=== PATIENT | female | born 1960 | race Caucasian/White ===

== ENCOUNTER 2018-05-11 10:11 | Day surgery (SDC) | payer OTHER ==
[2018-05-11 10:20] VITALS: BMI 38.2
--- NOTE | 2018-05-11 10:55 | PDOC ---
History of Present Illness - General Chief Complaint: Pain, Acute Stated Complaint: ABD PAIN, NAUSEA Time Seen by Provider: 05/11/18 10:31 History Source: Patient Exam Limitations: No Limitations - History of Present Illness Initial Comments: 05/11/18 11:03 57-year-old female presents to the emergency room for preop secondary to lap band removal. As per patient she had a lap band done in 2011 and since then has had abdominal pain, intermittent vomiting, epigastric spasms and unsuccessful weight loss. Patient will be admitted under Dr. davenport for removal today at 11 AM. Patient has no other complaints including difficulty breathing, chest pain, fever chills diarrhea, or weakness. Timing/Duration: getting worse, intermittent Severity: mild Associated Symptoms: reports: nausea/vomiting Past History - Travel Traveled outside of the country in the last 30 days: No - Past Medical History Allergies/Adverse Reactions: Allergies Allergy/AdvReac Type Severity Reaction Status Date / Time No Known Allergies Allergy Verified 05/11/18 10:20 Home Medications: Ambulatory Orders Dapagliflozin Propanediol [Farxiga] 10 mg PO DAILY 05/11/18 Dulaglutide [Trulicity] 0.75 mg SQ WEEKLY 05/11/18 Famotidine [Pepcid] 20 mg PO BID #60 tablet 05/11/18 Hydrochlorothiazide 25 mg PO DAILY 05/11/18 Insulin Aspart [Novolog] 40 unit SQ ASDIR 05/11/18 Insulin Degludec [Tresiba Flextouch U-100] 150 unit SQ DAILY 05/11/18 Losartan Potassium 100 mg PO DAILY 05/11/18 Metformin HCl [Glucophage] 1,000 mg PO BID 05/11/18 Omeprazole 40 mg PO DAILY 05/11/18 Oxycodone HCl/Acetaminophen [Percocet 5-325 mg Tablet] 1 - 2 tab PO Q6H #28 tab MDD 4 05/11/18 Rosuvastatin Calcium 20 mg PO HS 05/11/18 Anemia: No Asthma: No Cancer: No Cardiac Disorders: No CVA: No COPD: No CHF: No Dementia: No Diabetes: Yes (IDDM) GI Disorders: No Disorders: No HTN: Yes Hypercholesterolemia: Yes Liver Disease: No Seizures: No Thyroid Disease: No - Surgical History Abdominal Surgery: Yes (LAP BAND, HERNIA REPAIR) Appendectomy: No Cardiac Surgery: No Cholecystectomy: Yes Lung Surgery: No Neurologic Surgery: No Orthopedic Surgery: No - Suicide/Smoking/Psychosocial Hx Smoking Status: Yes Smoking History: Current every day smoker Have you smoked in the past 12 months: Yes Number of Cigarettes Smoked Daily: 20 Information on smoking cessation initiated: No Hx Alcohol Use: No Drug/Substance Use Hx: No Substance Use Type: None Hx Substance Use Treatment: No Patient Lives Alone: No Review of Systems - Review of Systems Able to Perform ROS?: No Constitutional: No: Symptoms Reported HEENTM: No: Symptoms Reported Respiratory: No: Symptoms reported Cardiac (ROS): No: Symptoms Reported ABD/GI: Yes: Nausea, Vomiting, Abdominal cramping : No: Symptoms Reported Musculoskeletal: No: Symptoms Reported Integumentary: No: Symptoms Reported Neurological: No: Symptoms reported *Physical Exam - Vital Signs Last Vital Signs Temp Pulse Resp BP Pulse Ox 98.2 F 105 H 16 140/70 97 05/11/18 10:15 05/11/18 10:15 05/11/18 10:15 05/11/18 10:15 05/11/18 10:15 - Physical Exam General Appearance: Yes: Nourished, Appropriately Dressed. No: Apparent Distress HEENT: positive: EOMI, EDUARDO. negative: Pale Conjunctivae Neck: positive: Supple Respiratory/Chest: positive: Lungs Clear, Normal Breath Sounds. negative: Respiratory Distress, Accessory Muscle Use Cardiovascular: positive: Regular Rhythm, Tachycardia. negative: Murmur Gastrointestinal/Abdominal: positive: Soft, Tenderness (Epigastric, upper periumbilical, generalized mild abdominal distention) Musculoskeletal: negative: CVA Tenderness Extremity: positive: Normal Capillary Refill. negative: Pedal Edema Integumentary: positive: Normal Color, Warm, Moist Neurologic: positive: Motor Strength 5/5 (ambulatory) Heart Score/ECG Review - History History: Slightly suspicious - Electrocardiogram EKG: Normal - Age Age: 45-65 - Risk Factors Risk Factors Heart Score: Yes Hx Diabetes Based on the list above the patient has:: 1-2 risk factors - ECG Intrepretation Rhythm: Regular Rhythm (sinus tachycardia at 103. no ST elevation or depression) ED Treatment Course - LABORATORY CBC & Chemistry Diagram: 05/11/18 13:30 05/11/18 13:30 Medical Decision Making - Medical Decision Making 05/11/18 11:03 Patient here for admission to the or for lap band removal under the care of Dr. Davenport Patient on exam had no acute findings. Chest x-ray shows no acute pathology. Labs collected an IV established without difficulty. here for consultation. *DC/Admit/Observation/Transfer Diagnosis at time of Disposition: Abdominal pain - Discharge Dispostion Disposition: HOME Condition at time of disposition: Stable Decision to Admit order: Yes - Prescriptions - Referrals - Patient Instructions - Post Discharge Activity
[2018-05-11] MEDS ORDERED: BUPIVACAINE HCL/PF 0.5% (5MG/ML) 10 ML VIAL ONE ×2 (11:31→12:26)
[2018-05-11 11:38] LABS: BASO % 1.3 % (0-2.0); HEMATOCRIT 39.2 % (32.4-45.2); HEMOGLOBIN 12.8 GM/dL (10.7-15.3); LYMPH % 30.4 % (8-40); MCH 27.1 pg (25.7-33.7); MCHC 32.7 g/dl (32.0-36.0); MONO % 6.5 % (3.8-10.2); NEUT % 57.8 % (42.8-82.8); PLATELET COUNT 322 K/MM3 (134-434); RBC 4.73 M/mm3 (3.60-5.2); RDW 15.2 % (11.6-15.6); WHITE BLOOD COUNT 9.8 K/mm3 (4.0-10.0)
--- NOTE | 2018-05-11 11:48 | HP ---
[facility] - Chief Complaint Chief Complaint: Epigatsric abdominal pain. Nusea. Vomiting. Dysphagia. Malfunctioning gastric band History Source: Patient Limitations to Obtaining History: No Limitations - Past Medical History Allergies/Adverse Reactions: Allergies Allergy/AdvReac Type Severity Reaction Status Date / Time No Known Allergies Allergy Verified 05/11/18 10:20 Cardiovascular: Yes: HTN, Hyperlipdemia Gastrointestinal: Yes: Other (Morbid obesity) Endocrine: Yes: Diabetes Mellitus - Current Medications Current Medications: Home Medications Medication Instructions Recorded Dapagliflozin Propanediol [Farxiga] 10 mg PO DAILY 05/11/18 Dulaglutide [Trulicity] 0.75 mg SQ WEEKLY 05/11/18 Hydrochlorothiazide 25 mg PO DAILY 05/11/18 Insulin Aspart [Novolog] 40 unit SQ ASDIR 05/11/18 Insulin Degludec [Tresiba 150 unit SQ DAILY 05/11/18 Flextouch U-100] Losartan Potassium 100 mg PO DAILY 05/11/18 Metformin HCl [Glucophage] 1,000 mg PO BID 05/11/18 Omeprazole 40 mg PO DAILY 05/11/18 Rosuvastatin Calcium 20 mg PO HS 05/11/18 Satellite Physical Exam - Physical Examination Vital Signs: Vital Signs Period Temp Pulse Resp BP Sys/Harrison Pulse Ox Last 24 Hr 98.2 F 105 16 140/70 97 General Appearance: Well Nourished Lung: Clear to auscultation Heart: Regular rate & rhythm Abdomen: Soft, Other (Epigastric tenderness) Neurological: Alert, Oriented Satellite Impression/Plan - Impression/Plan Impression: Malfunctioning gastric band. Epigastric pain. Nausea/vomiting. Dysphagia Operative Procedure: Laparoscopic possible open removal of gastric band, port and components, upper endoscopy, possible liver biopsy Date to be Performed: 05/11/18
[2018-05-11 11:49] LABS: ANION GAP 10 MMOL/L (8-16); BLOOD UREA NITROGEN 20 mg/dL (7-18); CALCIUM 9.4 mg/dL (8.5-10.1); CHLORIDE 102 mmol/L (98-107); CO2 28 mmol/L (21-32); CREATININE 0.9 mg/dL (0.55-1.02); GLUCOSE,RANDOM 173 mg/dL (74-106); POTASSIUM 4.5 mmol/L (3.5-5.1); SGOT/AST 96 U/L (15-37); SGPT/ALT 81 U/L (12-78); SODIUM 140 mmol/L (136-145)
[2018-05-11 11:50] LABS: ALK PHOS 111 U/L (45-117); BILIRUBIN,TOTAL 0.5 mg/dL (0.2-1.0); TOT PROT 7.7 g/dl (6.4-8.2)
[2018-05-11 11:52] LABS: INR 0.96 (0.83-1.09); PROTHROMBIN TIME (PATIENT) 10.9 SEC (9.7-13.0)
[2018-05-11] MEDS ORDERED: LIDOCAINE HCL/PF 2% SDV 5ML VIAL ONE (11:53)
[2018-05-11] MEDS ORDERED: ALBUTEROL SO4 8 GM HFA INHALER IH ONE (11:53)
[2018-05-11] MEDS ORDERED: SUCCINYLCHOLINE CHLORIDE 200 MG/10 ML VIAL ONE (11:54)
[2018-05-11] MEDS ORDERED: PROPOFOL 20 ML ONE (11:54)
[2018-05-11] MEDS ORDERED: fentaNYL CITRATE 250 MCG/5 ML VIAL ONE (11:54)
[2018-05-11 11:55] LABS: ACTIVATED PTT 28.1 SECONDS (25.2-36.5)
[2018-05-11] MEDS ORDERED: MIDAZOLAM HCL 2 MG/2 ML SINGLE DOSE VIAL ONE (11:55)
[2018-05-11] MEDS ORDERED: ROCURONIUM BROMIDE 50 MG/5 ML VIAL ONE (12:21)
[2018-05-11] MEDS ORDERED: ceFAZolin SODIUM 1 GM VIAL ONE (12:23)
[2018-05-11] MEDS ORDERED: ceFAZolin SODIUM 1 GM VIAL IVPB ONE (12:25)
[2018-05-11] MEDS ORDERED: DEXAMETHASONE SOD PHOSPHATE 4 MG/1 ML VIAL ONE (13:13)
[2018-05-11] MEDS ORDERED: NEOSTIGMINE METHYLSULFATE 0.5 MG/ML - 10 ML MDV ONE (13:36)
[2018-05-11] MEDS ORDERED: GLYCOPYRROLATE 0.2 MG/1 ML VIAL ONE (13:37)
[2018-05-11] MEDS ORDERED: morphine SULFATE 4 MG/ML VIAL IVPUSH PRN (13:47)
[2018-05-11] MEDS ORDERED: oxyCODONE HCL 5 MG TABLET PO PRN (13:47)
[2018-05-11] MEDS ORDERED: ACETAMINOPHEN 325 MG TABLET (FP) PO PRN (13:47)
[2018-05-11] MEDS ORDERED: ONDANSETRON 4 MG/2 ML VIAL IVPUSH PRN ×2 (13:47→14:06)
--- NOTE | 2018-05-11 13:47 | OP ---
Operative Note - Note: Operative Date: 05/11/18 Pre-Operative Diagnosis: Nausea, vomiting, malfunctioning gastric band, epigastric pain Operation: Diagnostic laparoscopy. Laparoscopic lysis of adhesions. Laparoscopic removal of gastric band, port, and components. Laparoscopic capsulotomy. Laparoscopic liver biopsy. EGD. Open incisional hernia repair Post-Operative Diagnosis: Other (Nausea, vomiting, malfunctioning gastric band, epigastric pain, intraabdominal adhesions, capsule, incisional hernia, hepatomegaly) Surgeon: Stewart Argueta Key Bed Installer: Santos Vaughn Anesthesia: General Specimens Removed: Gastric band, port, and components, capsule Estimated Blood Loss (mls): 30 Operative Report Dictated: Yes
[2018-05-11] MEDS ORDERED: BUPIVACAINE HCL/PF 0.5% (5MG/ML) 10 ML VIAL IJ ONE (13:48)
[2018-05-11] MEDS ORDERED: SODIUM CHLORIDE 1,000 ML IV SCH (14:00)
[2018-05-11] MEDS ORDERED: LACTATED RINGERS SOLUTION 1,000 ML IV SCH (14:15)
--- NOTE | 2018-05-11 14:16 | SURG ---
Surgery Quality Control Director Note Quality Control Director: Santos Vaughn PA-C Date of Service: 05/11/18 Diagnosis: Nausea, vomiting, malfunctioning gastric band, epigastric pain Procedure: Diagnostic laparoscopy. Laparoscopic lysis of adhesions. Laparoscopic removal of gastric band, port, and components. Laparoscopic capsulotomy. Laparoscopic liver biopsy. EGD. Open incisional hernia repair I was present for the entirety of the operative procedure. For further detail, please refer to operative report. Visit type - Case Type Case Type: Scheduled - New patient This patient is new to me today: Yes Date on this admission: 05/11/18
[2018-05-11] MEDS ORDERED: FAMOTIDINE 20 MG/50 ML IVPB 20 MG/50 ML MG IVPB ONE (14:28)
[2018-05-11] MEDS ORDERED: FAMOTIDINE 20 MG PREMIXED IVPB IVPB ONE (14:30)
[2018-05-11] MEDS ORDERED: FAMOTIDINE 20 MG/50 ML IVPB 20 MG/50 ML MG IVPB SCH ×2 (14:30→22:00)
[2018-05-11 14:51] LABS: HEMOGLOBIN 11.7 GM/dL (10.7-15.3); MCH 27.8 pg (25.7-33.7); MCHC 33.4 g/dl (32.0-36.0); MEAN CELL VOLUME 83.3 fl (80-96); MEAN PLT VOLUME 8.3 fl (7.5-11.1); PLATELET COUNT 317 K/MM3 (134-434); RDW 15.2 % (11.6-15.6); WHITE BLOOD COUNT 9.9 K/mm3 (4.0-10.0)
--- NOTE | 2018-05-11 14:59 | OP ---
DATE OF OPERATION: 05/11/2018 SURGEON: Ayesha Argueta MD TRANSONIC ENGINEER: JETT Rey PREOPERATIVE DIAGNOSES: 1. Nausea. 2. Vomiting. 3. Malfunctioning gastric band. 4. Epigastric pain. POSTOPERATIVE DIAGNOSES: 1. Nausea. 2. Vomiting. 3. Malfunctioning gastric band. 4. Epigastric pain. 5. Hepatomegaly. 6. Incisional hernia. PROCEDURE: 1. Diagnostic laparoscopy. 2. Laparoscopic lysis of adhesions. 3. Laparoscopic removal of Lap-Band, port, and components. 4. Laparoscopic wedge liver biopsy. 5. Upper endoscopy/esophagogastroduodenoscopy. 6. Laparoscopic capsulotomy. 7. Open incisional hernia repair. SPECIMEN: Gastric band port and components and capsule. BLOOD LOSS: 30 mL. DRAINS: None. ANESTHESIA: GET. TUBES: OG tubing. REASON FOR SURGERY: This is a 57-year-old female who presents to the emergency room for nausea, vomiting, epigastric pain, and a malfunctioning gastric band. She had a band placed by a different physician in 2012. Because of her persistent nausea and vomiting, she was consented for laparoscopic/possible open removal of her gastric band port and components with upper endoscopy, possible liver biopsy. The risks and benefits of the procedure were explained, these included bleeding, infection, hernia, AR, DVT, PE, injury to surrounding structure including the esophagus, stomach, duodenum, colon, liver, spleen, vessel injury, nerve injury, perforation, abscess, stricture, weight regain, vitamin deficiencies, as some of the complications. She understood and signed for consent. DESCRIPTION OF PROCEDURE: Patient was placed supine on the operative table. She underwent general endotracheal intubation. A footboard was placed, and her legs were secured. The arms were brought out 90 degrees and secured with Kerlix. The abdomen was prepped and draped in sterile fashion. Timeout was performed. An OG tube was placed by Anesthesia. An incision was made superior and to the left of the umbilicus. A Veress needle was inserted. Pneumoperitoneum was established. The Veress needle was then removed. A 5-mm optical trocar was placed under direct visualization with the laparoscope. Subsequently, a 5-mm trocar was placed in the left subcostal region as well as the right subcostal region. A 15-mm trocar was placed to the right and superior to the umbilicus at the level of the previous port. A stab incision was then made in the subxiphoid area and a Blanca clamp inserted and removed. The Amado liver retractor was then placed and secured to the post. Patient was placed in deep reverse Trendelenburg position. Immediately it was noted that there was omental adhesions to the liver that was obstructing the view. Because of this, using hook electrocautery, these adhesions were carefully lysed until visualization was able to be completely attained. Diagnostic laparoscopy was also performed inspected the remainder of the abdominal cavity. The liver was noted to be quite enlarged and therefore a liver biopsy planned at the end of the procedure to remove the band port and components. The tubing of the band was noted and used as a guide. Hook electrocautery was used to free up the band tubing from its surrounding structures up to the level of the band. The band was noted and freed circumferentially using hook electrocautery making sure to stay close and on top of the band and band tubing. The band was then opened using laparoscopic mynor. The band was then removed from its position and freed from its position around the stomach. The band tubing was then cut using laparoscopic mynor. In order to remove the band from around the stomach, it needed to be cut in half using mynor. The 2 portions of the band were then removed and sent to the nurse at the field. The 2 portions were noted to match. The capsule was then noted and grasped with [place] forceps. Using Metzenbaum scissors, the capsule was carefully opened freeing the stomach and allowing the compression from the outer stricture and capsule to be relieved. Once this was performed in continuity, inspection was performed, hemostasis noted. A laparoscopic wedge liver biopsy was then performed due to the hepatomegaly. A portion of the liver was grasped and using hook electrocautery, a wedge of liver was excised. Hemostasis was obtained and liver biopsy removed and sent off the field. To evaluate for obstruction and/or leak, an upper endoscopy was then performed. The endoscope was placed into the patient's mouth and inserted into the esophagus, GE junction, and stomach. No leak and no obstruction was noted both endoscopically and on the laparoscopic screens. The stomach was then suctioned, and the endoscope removed fully intact. Again copious irrigation was placed in the left lower quadrant, and again hemostasis noted. This was carefully suctioned. The liver retractor was then removed under direct visualization, and Surgicel dressing placed over the area of the liver biopsy. Hemostasis was noted. Pneumoperitoneum was desufflated. All instruments and trocars were removed. The opening at the 50-mm trocar site was then further opened, and the port of the gastric band grasped. The port along with its remainder of tubing was completely excised from the surrounding structures and removed from the field. The tubing portions were noted to match. At this point, there was noted to be an incisional hernia at the level of the port site. Because of this, an open incisional hernia repair was performed. The peritoneum was closed using 0 Vicryl suture, and the fascia was closed using multiple 0 Vicryl sutures in [id number] fashion. After closure, the fascial defect was noted to be completely sealed. Biosyn 3-0 was used to close the deep dermal tissue with this layer and used to approximate the subcutaneous tissue. Marcaine was injected to all incisions. Biosyn 4-0 was used to close all skin incisions. Sterile dressings were applied. Patient tolerated the procedure well, the OG tube was removed by Anesthesia, and patient was transferred to the recovery room in stable condition. AYESHA ARGUETA M.D. [id number]
[2018-05-11 15:09] LABS: ANION GAP 9 MMOL/L (8-16); BLOOD UREA NITROGEN 20 mg/dL (7-18); CALCIUM 8.7 mg/dL (8.5-10.1); CHLORIDE 104 mmol/L (98-107); CO2 28 mmol/L (21-32); CREATININE 0.9 mg/dL (0.55-1.02); GLUCOSE,RANDOM 166 mg/dL (74-106); POTASSIUM 4.7 mmol/L (3.5-5.1); SODIUM 141 mmol/L (136-145)
[2018-05-11] MEDS ORDERED: ENOXAPARIN NA (PORCINE) 40 MG/0.4 ML DISP.SYRIN SQ ONE ×3 (16:00→16:15)
[2018-05-11] MEDS ORDERED: oxyCODONE HCL 5 MG TABLET ONE (17:12)
[2018-05-11 18:46] VITALS: BP 128/70; PULSE 98; TEMP 97.8
--- NOTE | 2018-05-12 10:31 | EKG ---
Test Reason : Blood Pressure : / mmHG Vent. Rate : 103 BPM Atrial Rate : 103 BPM P-R Int : 124 ms QRS Dur : 072 ms QT Int : 340 ms P-R-T Axes : 067 -05 045 degrees QTc Int : 445 ms SINUS TACHYCARDIA ANTERIOR INFARCT , AGE UNDETERMINED ABNORMAL ECG WHEN COMPARED WITH ECG OF 26-JAN-2013 21:05, ANTERIOR INFARCT IS NOW PRESENT Confirmed by HALI JIMÉNEZ, MURALI ([id number]) on 05/12/2018 10:31:35 AM Referred By: Confirmed By:MURALI LAL MD
--- NOTE | 2018-05-16 17:50 | PATH ---
Surgical Pathology Report Patient Name: DESTIN BOBBY [facility]. Rec. #: [id number] /Age/Gender: 1960 (Age: 57) / F Account: [id number] Location: [facility] SURGICAL Taken: 05/11/2018 Received: 05/12/2018 Reported: 05/16/2018 Physicians: Stewart Argueta M.D. Specimen(s) Received A: GASTRIC BAND, SUBCUTANEOUS PORT B: LIVER BIOPSY Clinical History Epigastric abdominal pain, malfunctioning gastric band Final Diagnosis A. GASTRIC BAND,SUBCUTANEOUS PORT: CONSISTENT WITH GASTRIC BAND AND PORT. GROSS EXAMINATION ONLY. B. LIVER, BIOPSY: LIVER TISSUE SHOWING MODERATE STEATOSIS (50%) AND FOCAL BALLOONING DEGENERATION. MILD LOBULAR INFLAMMATION IDENTIFIED. INCREASED PERISINUSOIDAL/PERICELLULAR FIBROSIS (TRICHROME STAIN). NO INCREASED IRON (IRON STAIN) DEPOSITS. Comment: The above findings are consistent with steatohepatitis (mild), fibrosis stage 1 of 4 (Brunt's criteria). The biopsy material is subcapsular liver tissue with thermal artifact. Electronically Signed Danni Lawrence M.D. Gross Description A. Received fresh labeled "gastric band, subcutaneous port," are 2 portions of a disrupted gastric band measuring 3.0 x 1.3 x 0.7 cm and 11.0 x 2.0 x 0.7. The larger portion displays a 38.5 cm in length portion of tubing. Also received within the same container is a 3.3 cm in diameter x 1.5 cm in depth medina, circular device, consistent with a gastric port. The port displays a 10.5 cm in length portion of tubing extending from one aspect. No soft tissue is present. No sections are submitted, gross only. B. Received in formalin labeled "liver biopsy," are 2 medina soft tissue fragments measuring 1.0 x 0.6 x 0.3 cm and 1.3 x 0.8 x 0.3 cm. The specimens are submitted in toto in one cassette. 05/12/201805/12/2018
== END 2018-05-11 18:00 | disposition home or self-care (01) ==
LOC: JER 10:11 → JASU-SURG 11:23
PROVIDERS: ATTEND Surgery
PROC: 0WQF0ZZ Repair Abdominal Wall, Open Approach (ICD-10-PCS; 2018-05-11)
PROC: 0FB04ZX Excision of Liver, Percutaneous Endoscopic Approach, Diagnostic (ICD-10-PCS; 2018-05-11)
PROC: 0DJ08ZZ Inspection of Upper Intestinal Tract, Via Natural or Artificial Opening Endoscopic (ICD-10-PCS; 2018-05-11)
PROC: 0DP64CZ Removal of Extraluminal Device from Stomach, Percutaneous Endoscopic Approach (ICD-10-PCS; principal; 2018-05-11 11:00)
DX: T85.518A Breakdown (mechanical) of other gastrointestinal prosthetic devices, implants and grafts, initial encounter (principal); R16.0 Hepatomegaly, not elsewhere classified; K43.2 Incisional hernia without obstruction or gangrene; K66.0 Peritoneal adhesions (postprocedural) (postinfection); Y93.89 Activity, other specified; Y92.89 Other specified places as the place of occurrence of the external cause
CPT/HCPCS: 36415; 71045-TC-FY; 74241-TC-FY; 80048; 80053; 82962; 85025; 85027; 85610; 85730; 86850; 86900; 86901; 88300-TC; 88305-TC; 88313-TC; 93005; 93010; 94760; 99282-25

== ENCOUNTER 2018-07-13 07:16 | Day surgery (SDC) | payer OTHER ==
[2018-07-13 07:51] VITALS: BMI 38.6
[2018-07-13 11:52] VITALS: TEMP 98.2
[2018-07-13 12:36] VITALS: BP 155/73; PULSE 88
--- NOTE | 2018-07-13 12:51 | OP ---
DATE OF OPERATION: 07/13/2018 SURGEON: Stewart Argueta MD PREOPERATIVE DIAGNOSIS: Morbid obesity, body mass index of 38.6, sleep apnea, diabetes, hypertension. POSTOPERATIVE DIAGNOSIS: Normal gross gastric anatomy. PROCEDURE: Upper endoscopy, esophagogastroduodenoscopy. SPECIMENS: None. ESTIMATED BLOOD LOSS: 0. ANESTHESIA: MAC. REFERRING PHYSICIAN: This is a 57-year-old female who had a laparoscopic gastric band placed in the past, which was subsequently removed for dysphagia, epigastric pain, nausea, vomiting. She is now a candidate and is interested in a vertical sleeve gastrectomy. To further evaluate the anatomy prior to her vertical sleeve gastrectomy and after her band removal, an upper endoscopy/EGD was planned. The risks and benefits of the procedure were explained. These included bleeding, infection, injury to surrounding structures including the oral cavity, esophagus, GE junction, stomach, intestine, pylorus, duodenum, stricture, perforation, NH, DVT, PE, and some other complications. She understood and signed informed consent. DESCRIPTION OF PROCEDURE: The patient was placed in the left lateral decubitus position. MAC was given by Anesthesia. A time-out was performed. The scope was placed into the patient's mouth through the oral cavity, esophagus, EG junction, stomach, up to the level and beyond the level of the pylorus. Normal gross gastric anatomy was noted. No stricture. Obstruction was noted. The stomach was suctioned and the endoscope removed. The patient tolerated the procedure well and transferred to the recovery room in stable condition. RECOMMENDATION: Upper GI to further evaluate anatomy and possible revision of vertical sleeve gastrectomy. Bernardino PAZ/[id number]
== END 2018-07-13 12:36 | disposition home or self-care (01) ==
LOC: JASU-ENDO 07:16
PROVIDERS: ATTEND Surgery
PROC: 0DJ08ZZ Inspection of Upper Intestinal Tract, Via Natural or Artificial Opening Endoscopic (ICD-10-PCS; principal; 2018-07-13 08:00)
DX: E66.01 Morbid (severe) obesity due to excess calories (principal); I10 Essential (primary) hypertension; E11.9 Type 2 diabetes mellitus without complications; Z01.818 Encounter for other preprocedural examination
CPT/HCPCS: 82962

== ENCOUNTER 2019-03-01 13:57 | Inpatient (IN) | payer OTHER ==
--- NOTE | 2019-03-01 14:11 | PDOC ---
Rapid Medical Evaluation Chief Complaint: Pain Time Seen by Provider: 03/01/19 14:07 Medical Evaluation: Allergies Allergy/AdvReac Type Severity Reaction Status Date / Time No Known Allergies Allergy Verified 05/11/18 10:20 03/01/19 14:08 I have performed a brief in-person evaluation of this patient. The patient presents with a chief complaint of: sent for admission for left 4th toe infection Pertinent physical exam findings: wears postop shoe, States is hot / red/ smelling I have ordered the following: CBC, CMP, BCx 2 , Lactic acid, Xray foot, CXR The patient will proceed to the ED for further evaluation. 03/01/19 14:09 Discharge Disposition - Diagnosis Toe infection - Referrals - Patient Instructions - Post Discharge Activity
--- NOTE | 2019-03-01 14:48 | PDOC ---
History of Present Illness - General Chief Complaint: Pain Stated Complaint: LT FOOT WOUND Time Seen by Provider: 03/01/19 14:07 History Source: Patient Exam Limitations: No Limitations - History of Present Illness Initial Comments: 03/01/19 14:42 [id number] with h/o IDDM with foot neuropathy who p/w worsening infection of the left 4-5th toe web space, with very malodorous purulent drainage, left foot swelling/redness/warmth, and now left calf swelling and pain. The patient herself states that the toe has been increasingly red/hot/swollen for more than a month. She was previously on a PO antibiotic that she accidentally took incorrectly, the infection got worse during the course, then she was switched to a stronger PO antibiotic which she has been taking correctly for the past month without improvement. She denies f/c/n/v/d/c, headache, lightheadedness, streaking redness, or other symptoms. Checks blood sugars to be in the 200s usually at home. Past History - Past Medical History Allergies/Adverse Reactions: Allergies Allergy/AdvReac Type Severity Reaction Status Date / Time No Known Allergies Allergy Verified 03/01/19 14:10 Home Medications: Ambulatory Orders Dapagliflozin Propanediol [Farxiga] 10 mg PO DAILY 05/11/18 Dulaglutide [Trulicity] 0.75 mg SQ WEEKLY 05/11/18 Hydrochlorothiazide 25 mg PO DAILY 05/11/18 Insulin Aspart [Novolog] 100 unit SQ TID 05/11/18 Insulin Degludec [Tresiba Flextouch U-100] 150 unit SQ DAILY 05/11/18 Losartan Potassium 100 mg PO DAILY 05/11/18 Metformin HCl [Glucophage] 1,000 mg PO BID 05/11/18 Omeprazole 40 mg PO DAILY 05/11/18 Rosuvastatin Calcium 20 mg PO HS 05/11/18 Fluticasone Prop 0.05% Nasal [Flonase -] 1 - 2 spray NS DAILY 07/13/18 Anemia: No Asthma: No Cancer: No Cardiac Disorders: No CVA: No COPD: No CHF: No Dementia: No Diabetes: Yes GI Disorders: No Disorders: No HTN: Yes Hypercholesterolemia: Yes Liver Disease: No Seizures: No Thyroid Disease: No - Surgical History Abdominal Surgery: Yes (LAP BAND INSERTED AND REMOVED, HERNIA REPAIR) Appendectomy: No Cardiac Surgery: No (LEFT LEG ANGIOPLASTY) Cholecystectomy: Yes Lung Surgery: No Neurologic Surgery: No Orthopedic Surgery: No - Suicide/Smoking/Psychosocial Hx Smoking Status: Yes Smoking History: Never smoked Have you smoked in the past 12 months: No Number of Cigarettes Smoked Daily: 20 Information on smoking cessation initiated: No 'Breaking Loose' booklet given: 05/11/18 Hx Alcohol Use: No Drug/Substance Use Hx: No Substance Use Type: None Hx Substance Use Treatment: No Review of Systems - Review of Systems Able to Perform ROS?: Yes Comments:: GEN: no fever, chills, malaise, generalized weakness, or weight change HEENT: no ear pain, sore throat, vision change, or eye pain CV: no chest pain, palpitations, lightheadedness, syncope, or edema RESP: no cough, wheezing, or SOB GI: no abdominal pain, nausea, vomiting, diarrhea, constipation, or white/black/ bloody stool : no dysuria, hematuria, incontinence, retention, bleeding, or discharge MSK: no neck/back pain, muscle weakness/pain, or joint swelling/pain NEURO: no headache, seizure, vertigo, numbness, tingling, or focal weakness PSYCH: no substance use, no behavior change SKIN: left toe webspace infection, left foot/calf swelling/redness/pain, no jaundice ROS otherwise negative except as noted in HPI *Physical Exam - Vital Signs Last Vital Signs Temp Pulse Resp BP Pulse Ox 98.4 F 101 H 16 144/96 100 03/01/19 14:10 03/01/19 14:10 03/01/19 14:10 03/01/19 14:10 03/01/19 14:10 - Physical Exam Comments: GENERAL: very pleasant and humorous adult female, nontoxic and well-appearing, A /Ox4, no distress, answers questions appropriately HEENT: PERRLA, EOMI, moist mucous membranes NECK/BACK: no midline ttp, no spinal stepoff or deformity, no hematoma, full ROM , neck supple CARDIOVASCULAR: regular rate/rhythm, normal S1S2, no MGR, strong peripheral pulses, capillary refill <2 seconds, extremities wwp, no edema LUNGS/RESPIRATORY: no respiratory distress, CTAB GI/ABDOMEN: symmetric [id number], normoactive BS, soft, no ttp, no midline pulsatile masses : no CVA tenderness EXTREMITIES: significant swelling to left toes/foot/ankle/calf, wearing left foot boot, no muscle atrophy, no acute deformity SKIN: malorodous purulent drainage to ulcer in web space between 4th and 5th left toe, warmth and erythema to left foot, no streaking erythema, otherwise remainder of skin is warm and dry, no pallor, no jaundice, no bruising NEUROLOGICAL: GCS 15, CN II-XII grossly intact, 5/5 strength proximally and distally, no facial droop Heart Score/ECG Review #1 03/01/19 14:10 Sinus tachycardia, rate 105, normal axis and intervals, no ischemic ST-T changes ED Treatment Course - LABORATORY CBC & Chemistry Diagram: 03/01/19 15:50 03/01/19 15:50 Medical Decision Making - Medical Decision Making 03/01/19 16:58 [id number] with IDDM p/w >1 month of LE redness/warmth/pain. Initial Vital Signs Temp Pulse Resp BP Pulse Ox 98.4 F 101 H 16 144/96 100 03/01/19 14:10 03/01/19 14:10 03/01/19 14:10 03/01/19 14:10 03/01/19 14:10 Exam: As noted in Physical Exam section. DDX IBNLT: cellulitis, osteomyelitis, necrotizing soft tissue infection, sepsis , DVT, superficial venous thrombosis, CHF exacerbation, etc. W/U ordered: CBCD CMP Mg Phos Lactate BCx Coags T&S EKG CXR and X-ray leg to r/ o gas. TX ordered: Ofirmev, vancomycin, Zosyn EKG: Reviewed; results as noted in ECG Review section. CXR: Nothing acute XR: No obvious bony involvement to 4th-5th digit web space. Laboratory Tests 03/01/19 03/01/19 03/01/19 15:50 15:50 15:50 WBC 10.6 H RBC 4.18 Hgb 10.4 L Hct 32.6 MCV 77.9 L MCH 24.8 L D MCHC 31.8 L RDW 17.4 H Plt Count 303 MPV 7.9 Absolute Neuts (auto) 6.3 Neutrophils % 59.9 Lymphocytes % 28.1 Monocytes % 7.6 Eosinophils % 3.7 Basophils % 0.7 Nucleated RBC % 0 PT with INR INR Sodium 136 Potassium 4.6 Chloride 104 Carbon Dioxide 25 Anion Gap 7 L BUN 21.2 H Creatinine 0.8 Est GFR (CKD-EPI)AfAm 93.53 Est GFR (CKD-EPI)NonAf 80.70 Random Glucose 256 H Calcium 9.1 Total Bilirubin 0.2 AST 43 H ALT 56 Alkaline Phosphatase 124 H Total Protein 6.8 Albumin 3.3 L Acetone, Qual Negative L Blood Type A POSITIVE Antibody Screen Negative 03/01/19 15:50 WBC RBC Hgb Hct MCV MCH MCHC RDW Plt Count MPV Absolute Neuts (auto) Neutrophils % Lymphocytes % Monocytes % Eosinophils % Basophils % Nucleated RBC % PT with INR 10.90 INR 0.92 Sodium Potassium Chloride Carbon Dioxide Anion Gap BUN Creatinine Est GFR (CKD-EPI)AfAm Est GFR (CKD-EPI)NonAf Random Glucose Calcium Total Bilirubin AST ALT Alkaline Phosphatase Total Protein Albumin Acetone, Qual Blood Type Antibody Screen Reassessment: Patient states feels well, only mild pain. The Pt is unsafe for discharge at this time. They require further hospital observation, workup, and treatment. PCP is outside provider Dr. Riggins, manager photography Dr. Burch, vascular Dr. Vásquez. Microblog sent to [facility] for admission. Blank Decision to Admit order is placed per ED protocol. Consult order placed to Dr. Vásquez. Consult order placed to ID Dr. Silveira. Dr. Velazquez spoke with inpatient team and patient admitted to Dr. Alcala, Decision to Admit corrected. *DC/Admit/Observation/Transfer Diagnosis at time of Disposition: Insulin dependent diabetes mellitus, Foot infection Cellulitis Qualifiers: Site of cellulitis: extremity Site of cellulitis of extremity: lower extremity Laterality: left Qualified Code(s): L03.116 - Cellulitis of left lower limb - Discharge Dispostion Condition at time of disposition: Guarded Decision to Admit order: Yes - Referrals - Patient Instructions - Post Discharge Activity
[2019-03-01 16:12] LABS: BASO % 0.7 % (0-2.0); EOS % 3.7 % (0-4.5); HEMATOCRIT 32.6 % (32.4-45.2); HEMOGLOBIN 10.4 GM/dL (10.7-15.3); LYMPH % 28.1 % (8-40); MCH 24.8 pg (25.7-33.7); MCHC 31.8 g/dl (32.0-36.0); MEAN CELL VOLUME 77.9 fl (80-96); MEAN PLT VOLUME 7.9 fl (7.5-11.1); MONO % 7.6 % (3.8-10.2); NEUT % 59.9 % (42.8-82.8); PLATELET COUNT 303 K/MM3 (134-434); RBC 4.18 M/mm3 (3.60-5.2); RDW 17.4 % (11.6-15.6); WHITE BLOOD COUNT 10.6 K/mm3 (4.0-10.0)
[2019-03-01 16:29] LABS: INR 0.92 (0.83-1.09); PROTHROMBIN TIME (PATIENT) 10.9 SEC (9.7-13.0)
--- NOTE | 2019-03-01 16:31 | EKG ---
Test Reason : Blood Pressure : / mmHG Vent. Rate : 105 BPM Atrial Rate : 105 BPM P-R Int : 134 ms QRS Dur : 066 ms QT Int : 336 ms P-R-T Axes : 081 015 057 degrees QTc Int : 444 ms SINUS TACHYCARDIA POSSIBLE LEFT ATRIAL ENLARGEMENT BORDERLINE ECG WHEN COMPARED WITH ECG OF 11-MAY-2018 11:25, CRITERIA FOR ANTERIOR INFARCT ARE NO LONGER PRESENT Confirmed by SUSHMA JIMÉNEZ, EVON ([id number]) on 03/01/2019 4:30:41 PM Referred By: Confirmed By:EVON ORDAZ MD
[2019-03-01 16:38] LABS: ALBUMIN 3.3 g/dl (3.4-5.0); ALK PHOS 124 U/L (45-117); ANION GAP 7 MMOL/L (8-16); BILIRUBIN,TOTAL 0.2 mg/dL (0.2-1); BLOOD UREA NITROGEN 21.2 mg/dL (7-18); CALCIUM 9.1 mg/dL (8.5-10.1); CHLORIDE 104 mmol/L (98-107); CO2 25 mmol/L (21-32); CREATININE 0.8 mg/dL (0.55-1.3); GLUCOSE,RANDOM 256 mg/dL (74-106); POTASSIUM 4.6 mmol/L (3.5-5.1); SGOT/AST 43 U/L (15-37); SGPT/ALT 56 U/L (13-61); SODIUM 136 mmol/L (136-145); TOT PROT 6.8 g/dl (6.4-8.2)
[2019-03-01] MEDS ORDERED: VANCOMYCIN HCL 1,500 MG in DEXTROSE 5%-WATER - 500 ML IVPB ONE (16:44)
[2019-03-01] MEDS ORDERED: ACETAMINOPHEN 1000 MG/100 ML VIAL (NON FORMULARY) IVPB ONE (16:45)
[2019-03-01 16:48] LABS: ACETONE SERUM NEGATIVE (NEGATIVE)
[2019-03-01] MEDS ORDERED: PIPERACILLIN/TAZOB 4.5 GM 4.5 GM in DEXTROSE 5%-WATER 100 ML IVPB ONE (17:09)
--- NOTE | 2019-03-01 18:32 | PDOC ---
Documentation entered by Ranjana Garnica SCRIBE, acting as scribe for Johanna Velazquez DO. Johanna Velazquez DO: This documentation has been prepared by the ogibe, Ranjana Garnica SCRIBE, under my direction and personally reviewed by me in its entirety. I confirm that the documentation accurately reflects all work, treatment, procedures, and medical decision making performed by me. Attending Attestation - Resident Resident Name: GarciaPadma - ED Attending Attestation I have performed the following: I have examined & evaluated the patient, The case was reviewed & discussed with the resident, I agree w/resident's findings & plan, Exceptions are as noted - HPI HPI: 03/01/19 18:17 The patient is a 58 year old female with a past medical history significant for IDDM with neuropathy presents to the emergency department with worsening left foot wound. The patient presents with a malodorous, wound in between 4th and 5th left toe, with purulent drainage, associated left foot swelling and calf pain, no improvement noted with PO abx use. Denies fever, chills, COY. The patient was seen at Dr. Mason officer yesterday, who referred that patient the ER IV abx. - Physicial Exam PE: 03/01/19 18:35 Constitutional: Awake, alert, oriented. No acute distress. Head: Normocephalic. Atraumatic Eyes: PERRL. EOMI. Conjunctivae are not pale. ENT: Mucous membranes are moist and intact. Posterior pharynx without exudates or erythema. Uvula midline. Neck: Supple. Full ROM. No lymphadenopathy. Cardiovascular: Regular rate. Regular rhythm. S1, S2 regular. Distal pulses are 2+ and symmetric. Pulmonary/Chest: No evidence of respiratory distress. Clear to auscultation bilaterally No wheezing, rales or rhonchi. Abdominal: Soft and non-distended. There is no tenderness. No rebound, guarding or rigidity. No organomegaly. No palpable masses. Good bowel sounds. Back: No CVA tenderness. Musculoskeletal: +L. 4th and 5th web-spacing, wet gangrenous, necrotic, area of malodorous, with skin breakdown. No crepitus. Rest of MSK: No edema. No cyanosis. No clubbing. Full range of motion in all extremities. No calf tenderness. Radial/pedal pulses are intact and 2+ bilaterally Skin: Skin is warm and dry. No petechiae. No purpura. Neurological: Ambulatory. Alert and oriented to person, place, and time. Cranial nerves II-XII are grossly intact. Normal speech. Strength is grossly symmetric. No sensory deficits. Psychiatric: Good eye contact. Normal interaction, affect and behavior. - Medical Decision Making 03/01/19 18:30 I, Dr. Johanna Velazquez, DO, attest that this document has been prepared under my direction and personally reviewed by me in its entirety. I further attest, that it accurately reflects all work, treatment, procedures and medical decision -making performed by me. 03/01/19 18:30 a/p: 58yo female with dm with L foot wound between her 4th and 5th toes -pt has been on outpt abx x 2 courses -podiatry and pmd not assoc with [facility] -follows with Dr. Vásquez in the past -pt with foul smelling wound in the webspace between her 4th and 5th digit L foot -warmth, no redness, no lymphangitic spread -will send labs, cultures -will consult dr. vásquez who recommended the patient come to the ED for admission and poss surgical debridement -hx of enterococcus in the past -will start vancomycin -pt will need to be admitted 03/01/19 19:10 mildly elevated wbc microblog sent to [facility] Heart Score/ECG Review - ECG Intrepretation Comment:: 03/01/19 18:40 sinus tach at 105, nl axis, nl interval, no acute st/t wave findings
--- NOTE | 2019-03-01 19:41 | PN ---
Teaching Attending Note Name of Resident: Vaibhav Petit ATTENDING PHYSICIAN STATEMENT I saw and evaluated the patient. I reviewed the resident's note and discussed the case with the resident. I agree with the resident's findings and plan as documented. SUBJECTIVE: Patient is a 58 year old woman with PMH of HTN, Gastric band surgery in 2012, Gastric band removal in 2018, Obesity, left femoral/popliteal bypass, Tobacco use, Insulin-treated DM and diabetic neuropathy who presents to the ER with worsening left foot wound. She had a malodorous wound between the 4th and 5th left toes, with purulent drainage. There is associated left foot swelling and calf pain with no improvement noted on oral antibiotics. Patient states that the toe has been increasingly red/hot/swollen for more than a month. She was previously on PO antibiotics that she took incorrectly and then was switched to a stronger PO antibiotic which she has been taking correctly for the past month without improvement. Says she feel weak. She denies fever, chills, headache, SOB, chest pain, abdominal pain, dysuria or diarrhea. The patient was seen at Dr. Mason office yesterday and was referred to the ER for IV antibiotics. Also has an unexplained and yet to be investigated recurrent bout of pruritic forearm rash - says she scratches so hard sometimes that she draws blood. LMP was at age 44 years. Has not gone to see Eye MD for prophylactic diabetic Eye care because of financial reasons. OBJECTIVE: Alert and obese Vital Signs Period Temp Pulse Resp BP Sys/Hrarison Pulse Ox Last 24 Hr 98.4 F 101 16 144/96 100 HEENT: No Jaundice, eye redness or discharge, PERRLA, EOMI. Normocephalic, atraumatic. External ears are normal and hearing is grossly intact. No nasal discharge. Neck: Supple, nontender. No palpable adenopathy or thyromegaly. No JVD Chest: Good effort. Clear to auscultation and percussion. Heart: Regular. No S3, rub or murmur Abdomen: Not distended, soft, nontender and no HSM. No rebound or guarding. Normal bowel sounds. Ext: Peripheral pulses intact. Ulcer in left 4th and 5th web-spacing, wet gangrenous and necrotic with a malodorous discharge. Left leg edema and erythema of foot. No crepitus. Skin: Warm and dry. No petechiae; Crusting of papules and sequelae of pruritus on both forearms with areas of skin breakdown from itching. Neuro: Alert. Oriented x3. CN 2-12 grossly intact. Sensation grossly intact in all four extremities and DTR are symmetric. Psych: Emotionally labile. Appropriate mood and affect. Good insight. Home Medications Medication Instructions Recorded Dapagliflozin Propanediol [Farxiga] 10 mg PO DAILY 05/11/18 Dulaglutide [Trulicity] 0.75 mg SQ WEEKLY 05/11/18 Hydrochlorothiazide 25 mg PO DAILY 05/11/18 Insulin Aspart [Novolog] 100 unit SQ TID 05/11/18 Insulin Degludec [Tresiba 150 unit SQ DAILY 05/11/18 Flextouch U-100] Losartan Potassium 100 mg PO DAILY 05/11/18 Metformin HCl [Glucophage] 1,000 mg PO BID 05/11/18 Omeprazole 40 mg PO DAILY 05/11/18 Rosuvastatin Calcium 20 mg PO HS 05/11/18 Fluticasone Prop 0.05% Nasal 1 - 2 spray NS DAILY 07/13/18 [Flonase -] Abnormal Lab Results 03/01/19 03/01/19 15:50 15:50 WBC 10.6 H Hgb 10.4 L MCV 77.9 L MCH 24.8 L D MCHC 31.8 L RDW 17.4 H Anion Gap 7 L BUN 21.2 H Random Glucose 256 H AST 43 H Alkaline Phosphatase 124 H Albumin 3.3 L Acetone, Qual Negative L ASSESSMENT AND PLAN: 1. Infected foot ulcer and cellulitis - Patient has severe diabetic neuropathy and cannot remember the inciting injury that led to the ulcer on her left foot. Sepsis workup done, wound culture sent and IV vancomycin and zosyn started. No acute abnormality on CXR and left foot xray is unrevealing. EKG shows sinus tachycardia with no significant ST-T wave changes. Will get doppler scan of left leg, left foot MRI and consult Dr. Vásquez. 2. Hypoalbuminemia - Possibly due to combined effects of malnutrition and inflammation associated with comorbid chronic conditions. Will get urinalysis to rule out proteinuria. Will ensure adequate dietary protein intake and also consult salad bar clerk. 3. Uncontrolled DM For now, we will hold the home diabetes drugs and implement sliding scale insulin regimen. Provide comprehensive diabetes care with patient teaching and counseling about the importance of adherence to prescribed diabetes regimen, euglycemia, eye care and foot care. 4. Tobacco Use Says she quit 3 weeks ago. Counseled on risks associated with tobacco use. We will provide patient all the necessary assistance to facilitate smoking cessation and prescribe Nicotine patch. 5. Low MCV and Anemia - Cause unclear. Will do basic anemia work up including serial stool guaiacs, reticulocyte count and iron studies. 6. Obesity Counseled on the risks associated with obesity. Will provide patient all the necessary assistance, counseling and positive reinforcement to facilitate weight loss. Consult salad bar clerk. 7. Hypertension - Restart suitable outpatient antihypertensive drugs when clinically appropriate. Revise regimen to ensure good BP control. Nonpharmacologic measures to control hypertension like weight loss, salt restriction and exercise discussed. 8. DVT prophylaxis - Lovenox 40 mg SQ q 24 hours. 9. Advance directives - Full code.
[2019-03-01] MEDS ORDERED: ACETAMINOPHEN INJECTION 100 ML IVPB ONE (20:06)
[2019-03-01] MEDS ORDERED: VANCOMYCIN 1 GRAM (PRE-DOCKED) 1,000 MG/250 ML BAG IVPB ONE (20:06)
[2019-03-01] MEDS ORDERED: PIPERACILLIN/TAZOB 4.5 GM 4.5 GM/100 ML BAG IVPB ONE (20:06)
--- NOTE | 2019-03-01 20:45 | HP ---
CHIEF COMPLAINT: Worsening of diabetic left foot ulcer PCP: Dr. Riggins HISTORY OF PRESENT ILLNESS: Pt. is a 58 y.o. F w/ PMHx. of HTN, HLD, NIDDM, and L. Foot gangrene requiring Femoral-Popliteal Bypass in 2012 presents to the ED after failed outpatient management of left foot diabetic foot ulcer. Pt. states she was on 2 different antibiotics, the last being Doxycycline. Of note Pt. grew Tetracylcine resistant Enterrococcus Faecalis in 2012. Pt. endorses associated increased swelling of the lower extremities and of the abdomen during this time. Pt. endorses numbness on the left lower extremity up to the knee and chronic left lower extremity pain. Pt. endorses having cats and dogs at home and having dander getting on to wound sometimes. She states that to prevent this she keeps her foot in a sock constantly and does not have good air flow. Pt. dneies and fever, chills, constipatyion, diarrhea, chest pain, shortness of breath, but endorses dry heaves that occur with "anxiety attacks." Pt. states that she had Duplex of lower extremity done on Tuesday and that Dr. Vásquez has the results, also that she had a Doppler done in office and was told she had "good blood flow." Pt. was seen by her home wood type cutter, Dr. Burch, who assessed for osteomyleitis and was reportedly told that he could not probe to bone. Pt. states that her sugars consistently run in the 200s at home, and rarely enter the 300s. Pt. endorses anxiety attacks with diffuse upper extremity pruritus which she scratches and sometimes draws blood. ER course was notable for: (1)Tylenol, Zosyn, Vancomycin, (2)Foot Xray, CXR (3) UCx. BCx., Consult to Dr. Vásquez Recent Travel: No PAST MEDICAL HISTORY: As above PAST SURGICAL HISTORY: Fem/Pop Bypass of L. Leg, Gastric Banding(10+ years ago) , Band Removal (~2 years ago), x 2(, ), CCY, hernia repair Social History: Smokin.5 PPD, quit 3 weeks ago, started at 13 y.o. 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 Living: Lives with daughter, has multiple cats and dogs Family History: Father- Heart Disease, Emphysema; Mother: Lung CA Allergies No Known Allergies Allergy (Verified 03/01/19 14:10) HOME MEDICATIONS: Home Medications Medication Instructions Recorded Dapagliflozin Propanediol [Farxiga] 10 mg PO DAILY 05/11/18 Dulaglutide [Trulicity] 0.75 mg SQ WEEKLY 05/11/18 Hydrochlorothiazide 25 mg PO DAILY 05/11/18 Insulin Aspart [Novolog] 100 unit SQ TID 05/11/18 Insulin Degludec [Tresiba 150 unit SQ DAILY 05/11/18 Flextouch U-100] Losartan Potassium 100 mg PO DAILY 05/11/18 Metformin HCl [Glucophage] 1,000 mg PO BID 05/11/18 Omeprazole 40 mg PO DAILY 05/11/18 Rosuvastatin Calcium 20 mg PO HS 05/11/18 Fluticasone Prop 0.05% Nasal 1 - 2 spray NS DAILY 07/13/18 [Flonase -] REVIEW OF SYSTEMS As above PHYSICAL EXAMINATION Vital Signs - 24 hr 03/01/19 14:10 Temperature 98.4 F Pulse Rate 101 H Respiratory 16 Rate Blood Pressure 144/96 O2 Sat by Pulse 100 Oximetry (%) GENERAL: Awake, alert, and fully oriented, in no acute distress. HEAD: Normal with no signs of trauma. EYES: Pupils equal, round and reactive to light, extraocular movements intact, sclera anicteric, conjunctiva clear. EARS, NOSE, THROAT: Ears normal, nares patent, oropharynx clear without exudates. Moist mucous membranes. NECK: Normal range of motion, supple without lymphadenopathy, JVD, or masses. LUNGS: Breath sounds equal, clear to auscultation bilaterally. No wheezes, and no crackles. No accessory muscle use. HEART: Regular rate and rhythm, normal S1 and S2 without murmur ABDOMEN: Soft, nontender, distended, obese, dull to percussion, normoactive bowel sounds, no guarding MUSCULOSKELETAL: Normal range of motion at all joints. No bony deformities or tenderness. No CVA tenderness. UPPER EXTREMITIES: Warm, well-perfused. No cyanosis. No clubbing. No peripheral edema. scabs from excoriations on extensor aspect of arms LOWER EXTREMITIES: 2+ dorsal pedal pulses, warm, well-perfused. Diffuse leg tenderness L>R, No peripheral edema. Intertriginous ulcer on 4th digit of left foot. No purulence or tenderness noted. Decreased sensation of left foot. NEUROLOGICAL: Normal speech. Decreased sensation of left leg to the knee. L>R. PSYCHIATRIC: Cooperative. Good eye contact. Appropriate mood and affect. SKIN: Warm, dry, normal turgor, no rashes or lesions noted, normal capillary refill. Laboratory Results - last 24 hr 03/01/19 03/01/19 03/01/19 15:50 15:50 15:50 WBC 10.6 H RBC 4.18 Hgb 10.4 L Hct 32.6 MCV 77.9 L MCH 24.8 L D MCHC 31.8 L RDW 17.4 H Plt Count 303 MPV 7.9 Absolute Neuts (auto) 6.3 Neutrophils % 59.9 Lymphocytes % 28.1 Monocytes % 7.6 Eosinophils % 3.7 Basophils % 0.7 Nucleated RBC % 0 PT with INR INR Sodium 136 Potassium 4.6 Chloride 104 Carbon Dioxide 25 Anion Gap 7 L BUN 21.2 H Creatinine 0.8 Est GFR (CKD-EPI)AfAm 93.53 Est GFR (CKD-EPI)NonAf 80.70 Random Glucose 256 H Calcium 9.1 Total Bilirubin 0.2 AST 43 H ALT 56 Alkaline Phosphatase 124 H Total Protein 6.8 Albumin 3.3 L Acetone, Qual Negative L Blood Type A POSITIVE Antibody Screen Negative 03/01/19 15:50 WBC RBC Hgb Hct MCV MCH MCHC RDW Plt Count MPV Absolute Neuts (auto) Neutrophils % Lymphocytes % Monocytes % Eosinophils % Basophils % Nucleated RBC % PT with INR 10.90 INR 0.92 Sodium Potassium Chloride Carbon Dioxide Anion Gap BUN Creatinine Est GFR (CKD-EPI)AfAm Est GFR (CKD-EPI)NonAf Random Glucose Calcium Total Bilirubin AST ALT Alkaline Phosphatase Total Protein Albumin Acetone, Qual Blood Type Antibody Screen ASSESSMENT/PLAN: Pt. is a 58 y.o. F w/ PMHx. of HTN, HLD, NIDDM, and L. Foot gangrene requiring Femoral-Popliteal Bypass in 2012 presents to the ED after failed outpatient management of left foot diabetic foot ulcer. #NIDDM w/ Neuropathy and Diabetic Foot Ulcer Hold Oral Medications BGM ACHS ISS ACHS Given 30 units Levemir, Pt. took her dose of Tresiba earlier today According to ADA can give 20% reduction of long-acting insulin split into BID when converting from Tresiba (greater than 80units) to long acting (Tresiba 160 units = Levemir 64 SQ BID) Consider Endocrine consult given Pt. Takes Tresiba 160 units Daily, Novolog 35- 60 units TID, Dulaglutide 0.75mg weekly, Metformin 1,00mg BID and Dapagliflozin 10mg Daily. c/w Vancomycin and Zosyn for broad spectrum coverage F/u official read of foot X-ray Vascular consult (Dr. Vásquez) appreciated --> may need CT angiogram to assess patency of blood vessels, 2+ dorsal pedal pulses, may benefit from HBO therapy #HTN c/w Losartan c/w HCTZ #PVD c/w ASA 81mg #FEN no IVF, encourage PO intake monitor electrolytes and replete as needed Na Restricted/ Diabetic Diet #DVT Ppx. Heparin SQ TID Visit type - Emergency Visit Emergency Visit: Yes ED Registration Date: 03/01/19 Care time: The patient presented to the Emergency Department on the above date and was hospitalized for further evaluation of their emergent condition. - New Patient This patient is new to me today: Yes Date on this admission: 03/01/19 - Critical Care Critical Care patient: No
[2019-03-01] MEDS ORDERED: INSULIN (LEVEMIR) 100 UNITS/ML UNITS SQ ONE (21:32)
[2019-03-01] MEDS: INSULIN SLIDING SCALE (NOVOLOG) 1 VIAL SQ SCH (23:42)
[2019-03-02 00:02] VITALS: BMI 39.2
[2019-03-02] MEDS ORDERED: PIPERACILLIN/TAZOBACTAM 4.5 GM VIAL IVPB ONE ×2 (02:41→09:34)
[2019-03-02] MEDS ORDERED: DEXTROSE 5%-WATER 100 ML IVPB ONE ×2 (02:41→09:34)
[2019-03-02] MEDS: HEPARIN NA (PORCINE) 5,000 UNITS/ML 1ML VIAL SQ SCH ×4 (02:44→18:53)
[2019-03-02] MEDS: PIPERACILLIN/TAZOB 4.5 GM 4.5 GM in DEXTROSE 5%-WATER 100 ML IVPB SCH ×2 (02:44→10:58)
[2019-03-02] MEDS ORDERED: INSULIN (NOVOLOG) ASPART 100 UNITS/ML 10ML VIAL ONE ×3 (05:58→19:11)
[2019-03-02] MEDS: INSULIN SLIDING SCALE (NOVOLOG) 1 VIAL SQ SCH ×4 (06:04→21:25)
[2019-03-02 08:02] LABS: BASO % 0.8 % (0-2.0); EOS % 3.6 % (0-4.5); HEMATOCRIT 32.4 % (32.4-45.2); HEMOGLOBIN 10.3 GM/dL (10.7-15.3); LYMPH % 30.9 % (8-40); MCH 24.5 pg (25.7-33.7); MCHC 31.8 g/dl (32.0-36.0); MEAN CELL VOLUME 76.9 fl (80-96); MEAN PLT VOLUME 7.7 fl (7.5-11.1); MONO % 8.4 % (3.8-10.2); NEUT % 56.3 % (42.8-82.8); PLATELET COUNT 275 K/MM3 (134-434); RBC 4.21 M/mm3 (3.60-5.2); RDW 17.1 % (11.6-15.6); WHITE BLOOD COUNT 8.5 K/mm3 (4.0-10.0)
[2019-03-02 08:08] LABS: INR 0.97 (0.83-1.09); PROTHROMBIN TIME (PATIENT) 11.4 SEC (9.7-13.0)
--- NOTE | 2019-03-02 08:22 | CONSULT ---
Consult - History of Present Illness History of Present Illness: 58 year old woman with DM, smoker (quit 2 weeks ago), Hx PAD with angioplasty left leg in 2012 who has developed a non-healing ulcer of the left 4th toe. She had been treated by a child care attendant school with Santyl and PO abx with no improvement. She developed swelling and redness in the left leg. - History Source History Provided By: Patient - Past Medical History Cardio/Vascular: Yes: HTN, Hyperlipdemia Gastrointestinal: Yes: Other (Morbid obesity) ...: No Endocrine: Yes: Diabetes Mellitus - Alcohol/Substance Use Hx Alcohol Use: No - Smoking History Smoking history: Former smoker Have you smoked in the past 12 months: Yes Aproximately how many cigarettes per day: 30 If you are a former smoker, when did you quit?: 3 weeks ago Home Medications - Allergies Allergies/Adverse Reactions: Allergies Allergy/AdvReac Type Severity Reaction Status Date / Time No Known Allergies Allergy Verified 03/01/19 14:10 - Home Medications Home Medications: Ambulatory Orders Dapagliflozin Propanediol [Farxiga] 10 mg PO DAILY 05/11/18 Insulin Aspart [Novolog] 100 unit SQ TID 05/11/18 Insulin Degludec [Tresiba Flextouch U-100] 150 unit SQ DAILY 05/11/18 Losartan Potassium 100 mg PO DAILY 05/11/18 Metformin HCl [Glucophage] 1,000 mg PO BID 05/11/18 Omeprazole 40 mg PO DAILY 05/11/18 Cholecalciferol (Vitamin D3) [Vitamin D3] 5,000 unit PO 03/01/19 Doxycycline Hyclate 100 mg PO DAILY 03/01/19 Rosuvastatin 20 PO 03/01/19 Physical Exam Vital Signs: Vital Signs Temperature 98.5 F 03/02/19 06:26 Pulse Rate 97 H 03/02/19 06:26 Respiratory Rate 18 03/01/19 23:52 Blood Pressure 150/74 03/02/19 06:26 O2 Sat by Pulse Oximetry (%) 97 03/01/19 23:52 Constitutional: Yes: No Distress Extremities: Yes: Erythema Edema: Yes Edema: LLE: 3+ Peripheral Pulses WNL: No (No palpable pedal pulses) Wound/Incision: Yes: Other (Left 4th toe ulcer with necrotic base in lateral interspace) Imaging - Results X-ray: Image Reviewed (No obvious osteomyelitis) Problem List - Problems (1) Diabetic toe ulcer Assessment/Plan: Non-healing wound in limb with hx of arterial insufficiency. Will need vascular asessment and intervention prior to definitive wound care of toe. IV and topical antibiotics. CTA ordered. Code(s): E11.621 - TYPE 2 DIABETES MELLITUS WITH FOOT ULCER; L97.509 - NON- PRESSURE CHRONIC ULCER OTH PRT UNSP FOOT W UNSP SEVERITY Qualifiers: Diabetes mellitus type: type 2 Laterality: left Non-pressure ulcer stage : with fat layer exposed Qualified Code(s): E11.621 - Type 2 diabetes mellitus with foot ulcer; L97.522 - Non-pressure chronic ulcer of other part of left foot with fat layer exposed
[2019-03-02 08:39] LABS: CALCIUM 9.4 mg/dL (8.5-10.1); CREATININE 0.9 mg/dL (0.55-1.3); MAGNESIUM 2.2 mg/dL (1.8-2.4); PHOSPHOROUS 4.6 mg/dL (2.5-4.9); POTASSIUM 4.8 mmol/L (3.5-5.1)
[2019-03-02] MEDS ORDERED: PT OWN MED DRAWER 7, Y5N ONE ×3 (11:01→19:11)
--- NOTE | 2019-03-02 14:04 | CON.ID ---
Consult Consult Specialty:: infectious diseases Referred by:: kristen Cueto Reason for Consultation:: infected ulcer between the 4th and 5th toe - History of Present Illness Chief Complaint: non healing ulcer between the 4th and 5th toe History of Present Illness: 58YOF with h/o IDDM with foot neuropathy who p/w worsening infection of the left 4-5th toe web space, with very malodorous purulent drainage, left foot swelling/redness/warmth, and now left calf swelling and pain. The patient herself states that the toe has been increasingly red/hot/swollen for more than a month. She was previously on a PO antibiotic , the infection got worse during the course, then she was switched to a stronger PO antibiotic which she has been taking correctly for the past month without improvement. patient states that it has worsened and seen by vascular the wound is foul smelling - History Source History Provided By: Patient Limitations to Obtaining History: No Limitations - Past Medical History Cardio/Vascular: Yes: HTN, Hyperlipdemia Gastrointestinal: Yes: Other (Morbid obesity) ...: No Endocrine: Yes: Diabetes Mellitus - Alcohol/Substance Use Hx Alcohol Use: No - Smoking History Smoking history: Former smoker Have you smoked in the past 12 months: Yes Aproximately how many cigarettes per day: 30 If you are a former smoker, when did you quit?: 3 weeks ago Home Medications - Allergies Allergies/Adverse Reactions: Allergies Allergy/AdvReac Type Severity Reaction Status Date / Time No Known Allergies Allergy Verified 03/01/19 14:10 - Home Medications Home Medications: Ambulatory Orders Dapagliflozin Propanediol [Farxiga] 10 mg PO DAILY 05/11/18 Insulin Aspart [Novolog] 35 - 60 units SQ TID 05/11/18 Insulin Degludec [Tresiba Flextouch U-100] 160 unit SQ DAILY 05/11/18 Losartan Potassium 100 mg PO DAILY 05/11/18 Metformin HCl [Glucophage] 1,000 mg PO BID 05/11/18 Omeprazole 40 mg PO DAILY 05/11/18 Cholecalciferol (Vitamin D3) [Vitamin D3] 5,000 unit PO DAILY 03/01/19 Doxycycline Hyclate 100 mg PO BID 03/01/19 Rosuvastatin 20 mg PO 03/01/19 Aspirin [Raji Chewable Aspirin] 81 mg PO DAILY 03/02/19 Rosuvastatin [Crestor -] 20 mg PO DAILY 03/02/19 Review of Systems - Review of Systems Constitutional: reports: No Symptoms Eyes: reports: No Symptoms HENT: reports: No Symptoms Neck: reports: No Symptoms Cardiovascular: reports: No Symptoms Respiratory: reports: No Symptoms Gastrointestinal: reports: No Symptoms Genitourinary: reports: No Symptoms Musculoskeletal: reports: No Symptoms Integumentary: reports: Wound (in between the 4th and 5th toe,foul smeeling, eroded) Neurological: reports: No Symptoms Endocrine: reports: No Symptoms Hematology/Lymphatic: reports: No Symptoms Psychiatric: reports: No Symptoms Physical Exam Vital Signs: Vital Signs Temperature 98.2 F 03/02/19 09:15 Pulse Rate 98 H 03/02/19 09:15 Respiratory Rate 18 03/02/19 09:15 Blood Pressure 142/83 03/02/19 09:15 O2 Sat by Pulse Oximetry (%) 97 03/01/19 23:52 Constitutional: Yes: Well Nourished, No Distress, Calm Cardiovascular: Yes: Regular Rate and Rhythm Respiratory: Yes: Regular, CTA Bilaterally Gastrointestinal: Yes: Normal Bowel Sounds, Soft Musculoskeletal: Yes: WNL Extremities: Yes: Other Integumentary: Yes: WNL Wound/Incision: Yes: Dressing Removed, Other (ulcer between 4th and 5th toe) Neurological: Yes: Alert, Oriented Psychiatric: Yes: Alert, Oriented Labs: CBC, BMP 03/02/19 07:23 03/02/19 07:23 Assessment/Plan Pt. is a 58 y.o. F w/ PMHx. of HTN, HLD, NIDDM, and L. Foot gangrene requiring Femoral-Popliteal Bypass in 2012 presents to the ED after failed outpatient management of left foot diabetic foot ulcer. #NIDDM Diabetic Foot Ulcer HTN PVD r/o osteo plan would suggest doing an mri of the foot to r/o osteo abx will need cleaning of wound vascular on case rest as per the team
[2019-03-02] MEDS ORDERED: PIPERACILLIN/TAZOBACTAM 3.375 GM VIAL IVPB ONE ×2 (14:36→18:29)
[2019-03-02] MEDS ORDERED: DEXTROSE 5%-WATER - 50 ML IVPB ONE ×2 (14:36→18:29)
[2019-03-02] MEDS: PIPERACILLIN/TAZOB 3.375 GM 3.375 GM in DEXTROSE 5%-WATER - 50 ML IVPB SCH ×2 (14:41→18:53)
[2019-03-02] MEDS: GENTAMICIN SO4 0.1% TOPICAL OINTMENT 15 GM/TUBE TUBE TP SCH ×2 (16:35→21:27)
--- NOTE | 2019-03-02 16:46 | PN ---
Physical Exam: SUBJECTIVE: Patient seen and examined at bedside. No acute events overnight. Pt complains of LLE calf pain that has been persistent for 1.5 months. Denies f/c, n/v, chest pain, sob, abd pain, urinary/bowel symptoms. OBJECTIVE: Vital Signs Temperature 98.6 F 03/02/19 16:08 Pulse Rate 96 H 03/02/19 16:08 Respiratory Rate 20 03/02/19 16:08 Blood Pressure 150/84 03/02/19 16:08 O2 Sat by Pulse Oximetry (%) 95 03/02/19 09:00 GENERAL: The patient is awake, alert, and fully oriented, in no acute distress. HEENT: AT/NC. EOMI. EDUARDO. Moist mucus membranes. NECK: Trachea midline, full range of motion, supple. LUNGS: Breath sounds equal, clear to auscultation bilaterally, no wheezes, no crackles, no accessory muscle use. HEART: Regular rate and rhythm, S1, S2 without murmur, rub or gallop. ABDOMEN: Soft, nontender, nondistended, normoactive bowel sounds, no guarding, no rebound, no hepatosplenomegaly, no masses. EXTREMITIES: 2+ pulses, warm, well-perfused, no edema. Diffuse leg tenderness L> R, No peripheral edema. Intertriginous ulcer on 4th digit of left foot. No purulence or tenderness noted. Decreased sensation of left foot. NEUROLOGICAL: Cranial nerves II through XII grossly intact. Normal speech, gait not observed. CBCD WBC 8.5 K/mm3 (4.0-10.0) 03/02/19 07:23 RBC 4.21 M/mm3 (3.60-5.2) 03/02/19 07:23 Hgb 10.3 GM/dL (10.7-15.3) L 03/02/19 07:23 Hct 32.4 % (32.4-45.2) 03/02/19 07:23 MCV 76.9 fl (80-96) L 03/02/19 07:23 MCHC 31.8 g/dl (32.0-36.0) L 03/02/19 07:23 RDW 17.1 % (11.6-15.6) H 03/02/19 07:23 Plt Count 275 K/MM3 (134-434) 03/02/19 07:23 MPV 7.7 fl (7.5-11.1) 03/02/19 07:23 CMP Sodium 138 mmol/L (136-145) 03/02/19 07:23 Potassium 4.8 mmol/L (3.5-5.1) 03/02/19 07:23 Chloride 103 mmol/L (98-107) 03/02/19 07:23 Carbon Dioxide 28 mmol/L (21-32) 03/02/19 07:23 Anion Gap 6 MMOL/L (8-16) L 03/02/19 07:23 BUN 22.0 mg/dL (7-18) H 03/02/19 07:23 Creatinine 0.9 mg/dL (0.55-1.3) 03/02/19 07:23 Calcium 9.4 mg/dL (8.5-10.1) 03/02/19 07:23 Total Bilirubin 0.2 mg/dL (0.2-1) 03/01/19 15:50 AST 43 U/L (15-37) H 03/01/19 15:50 ALT 56 U/L (13-61) 03/01/19 15:50 Alkaline Phosphatase 124 U/L (45-117) H 03/01/19 15:50 Total Protein 6.8 g/dl (6.4-8.2) 03/01/19 15:50 Albumin 3.3 g/dl (3.4-5.0) L 03/01/19 15:50 Active Medications Gentamicin Sulfate (Garamycin 0.1% Ointment -) 1 applic TP BID GUS Heparin Sodium (Porcine) (Heparin -) 5,000 unit SQ Q8H-IV GUS Last Admin: 03/02/19 09:44 Dose: 5,000 unit Piperacillin Sod/Tazobactam (Sod 3.375 gm/ Dextrose) 50 mls @ 100 mls/hr IVPB Q8H-IV GUS; Protocol Last Admin: 03/02/19 14:41 Dose: 100 mls/hr Insulin Aspart (Novolog Vial Sliding Scale -) 1 vial SQ ACHS GUS; Protocol Last Admin: 03/02/19 11:02 Dose: 4 units IMAGING: * LE xray: * LE MRI: pending ASSESSMENT/PLAN: Pt. is a 58 y.o. F w/ PMHx. of HTN, HLD, NIDDM, and L. Foot gangrene requiring Femoral-Popliteal Bypass in 2012 presents to the ED after failed outpatient management of left foot diabetic foot ulcer. #PVD w/ Infected Diabetic L Foot Ulcer -followed by vascular surg (Dr. Vásquez) -Received Vanc/Zosyn in ED; will cont with Zosyn. F/u ID recs -Wound cx pending -Cont ASA, statin -MRI LLE to evaluate for possibly ostemyelitis pending #IDDM w/ peripheral neuropathy -Hold Oral Medications -BGM/ISS ACHS -will start long-acting insulin, Levemir 20U and titrate up as needed -f/u vasc surg recs #HTN; cont home meds: Losartan 100 QD #PVD; cont home meds: ASA 81mg #Microcytic Anemia/VAHE; H/H/MCV 10.3/32.4/76.9. -iron studies pending -give ferrous sulfate -needs outpatient follow up #FEN -no IVF, encourage PO intake -monitor electrolytes and replete as needed -Na Restricted/Diabetic Diet #DVT Ppx; SQH Dispo -cont to monitor on med-surg Visit type - Emergency Visit Emergency Visit: Yes ED Registration Date: 03/01/19 Care time: The patient presented to the Emergency Department on the above date and was hospitalized for further evaluation of their emergent condition. - New Patient This patient is new to me today: Yes Date on this admission: 03/04/19 - Critical Care Critical Care patient: No
[2019-03-02] MEDS ORDERED: PIPERACILLIN/TAZOB 4.5 GM 4.5 GM in DEXTROSE 5%-WATER 100 ML IVPB SCH (18:00)
--- NOTE | 2019-03-02 19:26 | PN ---
Teaching Attending Note Name of Resident: Judy Paz ATTENDING PHYSICIAN STATEMENT I saw and evaluated the patient. I reviewed the resident's note and discussed the case with the resident. I agree with the resident's findings and plan as documented. SUBJECTIVE: Reports some discomfort LLE. No fever/chills. No nausea/vomiting. OBJECTIVE: Afebrile, Hemodynamically Stable. Last Vital Signs Temp Pulse Resp BP Pulse Ox 98.6 F 96 H 20 150/84 95 03/02/19 16:08 03/02/19 16:08 03/02/19 16:08 03/02/19 16:08 03/02/19 09:00 HEENT - Atraumatic, Normocephalic. Heart - S1, S2, RRR Lungs - clear to auscultation Abdomen - distended due to high BMI. soft, non-tender. Bowel Sounds normal. Extremities- Bilateral LE edema, L>R. L foot ulcer dressed. Laboratory Results - last 24 hr 03/01/19 03/02/19 03/02/19 23:20 06:03 07:23 WBC 8.5 RBC 4.21 Hgb 10.3 L Hct 32.4 MCV 76.9 L MCH 24.5 L MCHC 31.8 L RDW 17.1 H Plt Count 275 MPV 7.7 Absolute Neuts (auto) 4.8 Neutrophils % 56.3 Lymphocytes % 30.9 Monocytes % 8.4 Eosinophils % 3.6 Basophils % 0.8 Nucleated RBC % 0 PT with INR INR Sodium Potassium Chloride Carbon Dioxide Anion Gap BUN Creatinine Est GFR (CKD-EPI)AfAm Est GFR (CKD-EPI)NonAf POC Glucometer 262 175 Random Glucose Calcium Phosphorus Magnesium Ferritin 03/02/19 03/02/19 03/02/19 07:23 07:23 10:54 WBC RBC Hgb Hct MCV MCH MCHC RDW Plt Count MPV Absolute Neuts (auto) Neutrophils % Lymphocytes % Monocytes % Eosinophils % Basophils % Nucleated RBC % PT with INR 11.40 INR 0.97 Sodium 138 Potassium 4.8 Chloride 103 Carbon Dioxide 28 Anion Gap 6 L BUN 22.0 H Creatinine 0.9 Est GFR (CKD-EPI)AfAm 81.11 Est GFR (CKD-EPI)NonAf 69.99 POC Glucometer 227 Random Glucose 143 H Calcium 9.4 Phosphorus 4.6 Magnesium 2.2 Ferritin 15.5 03/02/19 16:36 WBC RBC Hgb Hct MCV MCH MCHC RDW Plt Count MPV Absolute Neuts (auto) Neutrophils % Lymphocytes % Monocytes % Eosinophils % Basophils % Nucleated RBC % PT with INR INR Sodium Potassium Chloride Carbon Dioxide Anion Gap BUN Creatinine Est GFR (CKD-EPI)AfAm Est GFR (CKD-EPI)NonAf POC Glucometer 237 Random Glucose Calcium Phosphorus Magnesium Ferritin Current Medications Generic Name Dose Route Start Last Admin Trade Name Freq PRN Reason Stop Dose Admin Gentamicin Sulfate 1 applic 03/02/19 10:00 03/02/19 16:35 Garamycin 0.1% Ointment - TP 1 applic BID GUS Administration Heparin Sodium (Porcine) 5,000 unit 03/02/19 02:00 03/02/19 18:53 Heparin - SQ 5,000 unit Q8H-IV GUS Administration Piperacillin Sod/Tazobactam 50 mls @ 100 mls/hr 03/02/19 14:15 03/02/19 18:53 Sod 3.375 gm/ Dextrose IVPB 100 mls/hr Q8H-IV GUS Administration Protocol Insulin Aspart 1 vial 03/01/19 22:00 03/02/19 16:38 Novolog Vial Sliding Scale - SQ 4 units ACHS GUS Administration Protocol Home Medications Medication Instructions Recorded Dapagliflozin Propanediol [Farxiga] 10 mg PO DAILY 05/11/18 Insulin Aspart [Novolog] 35 - 60 units SQ TID 05/11/18 Insulin Degludec [Tresiba 160 unit SQ DAILY 05/11/18 Flextouch U-100] Losartan Potassium 100 mg PO DAILY 05/11/18 Metformin HCl [Glucophage] 1,000 mg PO BID 05/11/18 Omeprazole 40 mg PO DAILY 05/11/18 Cholecalciferol (Vitamin D3) 5,000 unit PO DAILY 03/01/19 [Vitamin D3] Doxycycline Hyclate 100 mg PO BID 03/01/19 Rosuvastatin 20 mg PO 03/01/19 Aspirin [Raji Chewable Aspirin] 81 mg PO DAILY 03/02/19 Rosuvastatin [Crestor -] 20 mg PO DAILY 03/02/19 ASSESSMENT AND PLAN: 58 year old female with HTN, HLD, DM 2, PAD s/p Femoral-Popliteal Bypass in 2012 , presents to the ED after failed outpatient management of left foot ulcer. 1. PAD with Infected L Foot Ulcer (between 3rd and 4th digits) Duplex LEs - no DVT CTA Aorta with runoff - Mild to moderate aortoiliac, femoropopliteal, inferopopliteal atherosclerotic disease with stenoses 50-70% in femoral and popliteal segments. Flow to DPAs and Plantar arteries cannot be discerned. Fusiform 1.2cm dilatation of the celiac trunk. Received IV Zosyn/Vanco in ED. Continue IV Zosyn - ID following. Wound Cx pending Vascular Surgery Dr. Vásquez following. Continue Aspirin, Statin. MRI to exclude Osteomyelitis. 2. DM 2 with Neuropathy Normally on Tresiba 160 units Daily, Novolog 35-60 units TID, Dulaglutide 0.75mg weekly, Metformin 1,00mg BID and Dapagliflozin 10mg Daily. Currently fingersticks in low 200s on sliding scale insulin. Will start long acting insulin at Levemir 20 units qhs - will likely need up-titration. 3. HTN - continue Losartan. 4. HLD - Continue statin 5. Microcytic Anemia, Iron Deficiency Anemia - H/H/MCV 10.3/32.4/76.9. Ferritin 15, rest of iron studies pending. Started on Ferrous Sulfate. Needs further work -up as out-patient. DVT Px - Heparin SQ
[2019-03-02] MEDS ORDERED: INSULIN (LEVEMIR) 100 UNITS/ML UNITS SQ SCH (22:00)
[2019-03-03] MEDS ORDERED: PIPERACILLIN/TAZOBACTAM 3.375 GM VIAL IVPB ONE ×3 (02:33→17:06)
[2019-03-03] MEDS ORDERED: DEXTROSE 5%-WATER - 50 ML IVPB ONE ×3 (02:33→17:06)
[2019-03-03] MEDS: PIPERACILLIN/TAZOB 3.375 GM 3.375 GM in DEXTROSE 5%-WATER - 50 ML IVPB SCH ×3 (02:48→17:09)
[2019-03-03] MEDS: HEPARIN NA (PORCINE) 5,000 UNITS/ML 1ML VIAL SQ SCH ×3 (02:49→17:08)
[2019-03-03 05:11] LABS: SERUM IRON SATURATION 11 % (15-55); TOTAL IRON BINDING CAPACITY 390 ug/dL (250-450); UIBC 346 ug/dL (131-425)
[2019-03-03] MEDS: INSULIN SLIDING SCALE (NOVOLOG) 1 VIAL SQ SCH ×4 (06:15→21:54)
[2019-03-03] MEDS: LOSARTAN POTASSIUM 50 MG TABLET (FP) PO SCH (10:39)
[2019-03-03] MEDS: ASPIRIN 81 MG CHEWABLE TABLETS PO SCH (10:39)
[2019-03-03] MEDS: PANTOPRAZOLE 40 MG TABLET (FP) PO SCH (10:39)
[2019-03-03] MEDS: FERROUS SO4 325 MG TABLET (FP) PO SCH ×2 (10:40→17:08)
[2019-03-03] MEDS ORDERED: INSULIN (NOVOLOG) ASPART 100 UNITS/ML 10ML VIAL ONE ×2 (11:15→20:58)
--- NOTE | 2019-03-03 12:21 | PN ---
Physical Exam: SUBJECTIVE: Patient seen and examined at bedside. Without complaint. Feeling well. L foot less malodorous. OBJECTIVE: Vital Signs Period Temp Pulse Resp BP Sys/Harrison Pulse Ox Last 24 Hr 97.6 F-98.6 F 90-96 19-20 134-150/53-84 97 GENERAL: The patient is awake, alert, and fully oriented, in no acute distress. HEAD: Normal with no signs of trauma. EYES: PERRL, extraocular movements intact, sclera anicteric, conjunctiva clear. No ptosis. ENT: Ears normal, nares patent, oropharynx clear without exudates, moist mucous membranes. NECK: Trachea midline, full range of motion, supple. LUNGS: Breath sounds equal, clear to auscultation bilaterally, no wheezes, no crackles HEART: Regular rate and rhythm, S1, S2 without murmur, rub or gallop. ABDOMEN: Soft, obese, nontender, nondistended, normoactive bowel sounds EXTREMITIES: 2+ pt pulses, 1+ pitting edema L>R. +L 3rd-4th interspace ulceration w/malodorous serous d/c NEUROLOGICAL: Cranial nerves II through XII grossly intact. PSYCH: Normal mood, normal affect. SKIN: Warm, dry Laboratory Results - last 24 hr 03/02/19 03/02/19 03/02/19 07:23 16:36 21:20 POC Glucometer 237 281 Iron 44 TIBC 390 Iron Saturation 11 L Unsaturated IBC 346 03/03/19 03/03/19 06:13 11:06 POC Glucometer 243 302 Iron Microbiology 03/01/19 17:10 Ulcer Gram Stain - Final 03/01/19 17:10 Ulcer Wound Culture - Preliminary Lactose Fermenting Neg Bacilli Corynebacterium Species 03/01/19 15:50 Blood - Peripheral Venous Blood Culture - Preliminary NO GROWTH OBTAINED AFTER 24 HOURS, INCUBATION TO CONTINUE FOR 4 DAYS. 03/01/19 15:30 Blood - Peripheral Venous Blood Culture - Preliminary NO GROWTH OBTAINED AFTER 24 HOURS, INCUBATION TO CONTINUE FOR 4 DAYS. ASSESSMENT/PLAN: 58 y/o F with HTN, HLD, DM2, PAD s/p Femoral-Popliteal Bypass in 2012, presents to the ED after failed outpatient management of left foot ulcer. #PAD with infected L foot ulcer -wound cx: prelim lactose ferm (-) bacilli, corynebacterium. awaiting c+s -blood cx (-) -c/w zosyn for now -ID: Dr. Silveira -Vascular: Dr. Vásquez -f/u MRI to r/o osteo and determine abx duration -c/w asa, rosuvastatin, gentamicin ointment #DM2 with neuropathy -as BG uncontrolled 200-300, will uptitrate levemir to 25u qHS instead of 20 -c/w ISS, BGM #HTN-uncontrolled -likely exacerbated by discomfort -c/w losartan #HLD -c/w rosuvastatin #microcytic anemia -c/w ferrous sulfate #F/E/N not on IVF continue to follow lytes diabetic, na controlled diet #PPX DVT: hep sq GI: protonix #Dispo cont'd monitoring on med-surg Visit type - Emergency Visit Emergency Visit: No - New Patient This patient is new to me today: Yes Date on this admission: 03/03/19 - Critical Care Critical Care patient: No
--- NOTE | 2019-03-03 12:22 | PN ---
Teaching Attending Note Name of Resident: Pauly Roblero ATTENDING PHYSICIAN STATEMENT I saw and evaluated the patient. I reviewed the resident's note and discussed the case with the resident. I agree with the resident's findings and plan as documented. SUBJECTIVE: Patient has some pain in her left foot. OBJECTIVE: Vital Signs Period Temp Pulse Resp BP Sys/Harrison Pulse Ox Last 24 Hr 97.6 F-98.6 F 90-96 19-20 134-150/53-84 97 HEART: S1S2, RRR LUNGS: Clear ABDOMEN: Obese, soft, non-tender, non-distended, normal BS EXTREMITIES: Left calf circumference > right calf. Ulcer between left 4th and 5th toes Laboratory Results - last 24 hr 03/02/19 03/02/19 03/02/19 07:23 16:36 21:20 POC Glucometer 237 281 Iron 44 TIBC 390 Iron Saturation 11 L Unsaturated IBC 346 03/03/19 03/03/19 06:13 11:06 POC Glucometer 243 302 Iron TIBC Iron Saturation Unsaturated IBC Current Medications Generic Name Dose Route Start Last Admin Trade Name Eugeneq PRN Reason Stop Dose Admin Aspirin 81 mg 03/03/19 10:00 03/03/19 10:39 Asa - PO 81 mg DAILY GUS Administration Ferrous Sulfate 325 mg 03/03/19 08:00 03/03/19 10:40 Feosol - PO 325 mg BIDWM GUS Administration Gentamicin Sulfate 1 applic 03/02/19 10:00 03/02/19 21:27 Garamycin 0.1% Ointment - TP 1 applic BID GUS Administration Heparin Sodium (Porcine) 5,000 unit 03/02/19 02:00 03/03/19 11:22 Heparin - SQ 5,000 unit Q8H-IV GUS Administration Piperacillin Sod/Tazobactam 50 mls @ 100 mls/hr 03/02/19 14:15 03/03/19 10:39 Sod 3.375 gm/ Dextrose IVPB 100 mls/hr Q8H-IV GUS Administration Protocol Insulin Aspart 1 vial 03/01/19 22:00 03/03/19 11:22 Novolog Vial Sliding Scale - SQ 8 units ACHS GUS Administration Protocol Insulin Detemir 20 units 03/02/19 22:00 03/02/19 21:24 Levemir Vial SQ 20 units HS GUS Administration Losartan Potassium 100 mg 03/03/19 10:00 03/03/19 10:39 Cozaar - PO 100 mg DAILY GUS Administration Pantoprazole Sodium 40 mg 03/03/19 10:00 03/03/19 10:39 Protonix - PO 40 mg DAILY GUS Administration Rosuvastatin Calcium 20 mg 03/03/19 22:00 Crestor - PO HS GUS ASSESSMENT AND PLAN: This is a 58 year old woman with a history of HTN, hyperlipidemia, type 2 DM, PAD, left leg angioplasty who presented to the ED because of a left foot ulcer. 1. Infected non-healing left foot ulcer - Wound culture growing gram neg bacilli, Corynebacterium - No evidence of DVT - CTA of aorta with runoff shows mild to moderate aortoiliac, femoropopliteal , inferopopliteal atherosclerotic disease with stenoses 50-70% in femoral and popliteal segments; flow to DPAs and plantar arteries cannot be discerned; fusiform 1.2 cm dilatation of the celiac trunk. - Continue Zosyn - MRI of left foot ordered 2. PAD, history of LLE angioplasty - Continue aspirin, Crestor - Vascular surgery follow up 3. Type 2 DM with neuropathy - Tresiba, Trulicity, metformin, Farxiga held - Increase Levemir - Continue Novolog sliding scale 4. HTN - Continue Cozaar 5. Hyperlipidemia - Continue Crestor 6. Anemia, microcytic - Hemoglobin is stable - Continue ferrous sulfate - Further evaluation can be done as outpatient 7. Obesity with BMI 39.2
[2019-03-03] MEDS: GENTAMICIN SO4 0.1% TOPICAL OINTMENT 15 GM/TUBE TUBE TP SCH ×2 (13:00→22:50)
--- NOTE | 2019-03-03 13:10 | PN ---
Progress Note, Physician History of Present Illness: Pt seen and examined, chart/imaging/lab results reviewed. Pt is doing well. States her Lt leg feels better, less painful, ambulating. Tolerating antibiotics. Afebrile, without new complaints. - Current Medication List Current Medications: Active Medications Aspirin (Asa -) 81 mg PO DAILY [facility] Last Admin: 03/03/19 10:39 Dose: 81 mg Ferrous Sulfate (Feosol -) 325 mg PO BIDWM [facility] Last Admin: 03/03/19 10:40 Dose: 325 mg Gentamicin Sulfate (Garamycin 0.1% Ointment -) 1 applic TP BID [facility] Last Admin: 03/02/19 21:27 Dose: 1 applic Heparin Sodium (Porcine) (Heparin -) 5,000 unit SQ Q8H-IV [facility] Last Admin: 03/03/19 11:22 Dose: 5,000 unit Piperacillin Sod/Tazobactam (Sod 3.375 gm/ Dextrose) 50 mls @ 100 mls/hr IVPB Q8H-IV [facility]; Protocol Last Admin: 03/03/19 10:39 Dose: 100 mls/hr Insulin Aspart (Novolog Vial Sliding Scale -) 1 vial SQ [facility]; Protocol Last Admin: 03/03/19 11:22 Dose: 8 units Insulin Detemir (Levemir Vial) 25 units SQ [facility] Losartan Potassium (Cozaar -) 100 mg PO DAILY [facility] Last Admin: 03/03/19 10:39 Dose: 100 mg Pantoprazole Sodium (Protonix -) 40 mg PO DAILY [facility] Last Admin: 03/03/19 10:39 Dose: 40 mg Rosuvastatin Calcium (Crestor -) 20 mg PO [facility] - Objective Vital Signs: Vital Signs Temperature 98.2 F 03/03/19 08:04 Pulse Rate 90 03/03/19 08:04 Respiratory Rate 20 03/03/19 08:04 Blood Pressure 134/74 03/03/19 08:04 O2 Sat by Pulse Oximetry (%) 97 03/02/19 21:00 Constitutional: Yes: No Distress, Calm Cardiovascular: Yes: Regular Rate and Rhythm Respiratory: Yes: Regular Gastrointestinal: Yes: Normal Bowel Sounds, Soft Genitourinary: Yes: WNL Musculoskeletal: Yes: WNL Edema: LLE: 1+ Wound/Incision: Yes: Other (Lt 4/5th toe interdigital ulcer with mild drainage, +LLE edema, less erythema/tenderness) Neurological: Yes: Alert, Oriented Labs: CBC, BMP 03/02/19 07:23 03/02/19 07:23 INR, PTT INR 0.97 (0.83-1.09) 03/02/19 07:23 Microbiology 03/01/19 17:10 Ulcer Gram Stain - Final 03/01/19 17:10 Ulcer Wound Culture - Preliminary Lactose Fermenting Neg Bacilli Corynebacterium Species 03/01/19 15:50 Blood - Peripheral Venous Blood Culture - Preliminary NO GROWTH OBTAINED AFTER 24 HOURS, INCUBATION TO CONTINUE FOR 4 DAYS. 03/01/19 15:30 Blood - Peripheral Venous Blood Culture - Preliminary NO GROWTH OBTAINED AFTER 24 HOURS, INCUBATION TO CONTINUE FOR 4 DAYS. - ....Imaging Cat Scan: Report Reviewed Ultrasound: Report Reviewed Problem List - Problems (1) Cellulitis Code(s): L03.90 - CELLULITIS, UNSPECIFIED Qualifiers: Site of cellulitis: extremity Site of cellulitis of extremity: lower extremity Laterality: left Qualified Code(s): L03.116 - Cellulitis of left lower limb (2) Diabetic toe ulcer Code(s): E11.621 - TYPE 2 DIABETES MELLITUS WITH FOOT ULCER; L97.509 - NON- PRESSURE CHRONIC ULCER OTH PRT UNSP FOOT W UNSP SEVERITY Qualifiers: Diabetes mellitus type: type 2 Laterality: left Non-pressure ulcer stage : with fat layer exposed Qualified Code(s): E11.621 - Type 2 diabetes mellitus with foot ulcer; L97.522 - Non-pressure chronic ulcer of other part of left foot with fat layer exposed (3) Insulin dependent diabetes mellitus Code(s): E11.9 - TYPE 2 DIABETES MELLITUS WITHOUT COMPLICATIONS; Z79.4 - [employer] (CURRENT) USE OF INSULIN Assessment/Plan Infected Lt foot interdigital ulcer r/o OM LLE cellulitis DM with peripheral neuropathy HTN HLD Anemia -- continue current antibiotics -- f/u wound culture results -- MRI pending -- Vascular following -- continue wound care
--- NOTE | 2019-03-03 14:17 | PN ---
Progress Note (short form) - Note Progress Note: Afebrile Left leg and foot erythema improved. Left 4th toe ulcer with less exudate. Wound debrided (non-excisional) to remove loose exudate. CTA poor quality - no major vascular disease above kness. Await MRI for r/o osteo Problem List - Problems (1) Diabetic toe ulcer Code(s): E11.621 - TYPE 2 DIABETES MELLITUS WITH FOOT ULCER; L97.509 - NON- PRESSURE CHRONIC ULCER OTH PRT UNSP FOOT W UNSP SEVERITY Qualifiers: Qualified Code(s): E11.621 - Type 2 diabetes mellitus with foot ulcer; L97.522 - Non-pressure chronic ulcer of other part of left foot with fat layer exposed
[2019-03-03] MEDS: ROSUVASTATIN CA 20 MG TABLET (FP) PO SCH (21:50)
[2019-03-03] MEDS: INSULIN (LEVEMIR) 100 UNITS/ML UNITS SQ SCH (21:53)
[2019-03-04] MEDS ORDERED: DEXTROSE 5%-WATER - 50 ML IVPB ONE ×3 (02:30→17:09)
[2019-03-04] MEDS ORDERED: PIPERACILLIN/TAZOBACTAM 3.375 GM VIAL IVPB ONE ×3 (02:30→17:08)
[2019-03-04] MEDS: HEPARIN NA (PORCINE) 5,000 UNITS/ML 1ML VIAL SQ SCH ×3 (02:54→17:14)
[2019-03-04] MEDS: PIPERACILLIN/TAZOB 3.375 GM 3.375 GM in DEXTROSE 5%-WATER - 50 ML IVPB SCH ×3 (02:55→17:15)
[2019-03-04] MEDS: INSULIN SLIDING SCALE (NOVOLOG) 1 VIAL SQ SCH ×4 (06:28→21:57)
[2019-03-04] MEDS: FERROUS SO4 325 MG TABLET (FP) PO SCH ×2 (10:32→17:14)
[2019-03-04] MEDS: ASPIRIN 81 MG CHEWABLE TABLETS PO SCH (10:32)
[2019-03-04] MEDS: PANTOPRAZOLE 40 MG TABLET (FP) PO SCH (10:32)
[2019-03-04] MEDS: LOSARTAN POTASSIUM 50 MG TABLET (FP) PO SCH (10:32)
[2019-03-04] MEDS: GENTAMICIN SO4 0.1% TOPICAL OINTMENT 15 GM/TUBE TUBE TP SCH ×2 (10:33→21:59)
--- NOTE | 2019-03-04 15:21 | PN ---
Progress Note, Physician History of Present Illness: Pt states she feels better and has less pain/swelling in LLE. Remains afebrile. Has no new complaints. She had wound debridement done. - Current Medication List Current Medications: Active Medications Aspirin (Asa -) 81 mg PO DAILY [facility] Last Admin: 03/04/19 10:32 Dose: 81 mg Ferrous Sulfate (Feosol -) 325 mg PO BIDWM [facility] Last Admin: 03/04/19 10:32 Dose: 325 mg Gentamicin Sulfate (Garamycin 0.1% Ointment -) 1 applic TP BID [facility] Last Admin: 03/04/19 10:33 Dose: 1 applic Heparin Sodium (Porcine) (Heparin -) 5,000 unit SQ Q8H-IV [facility] Last Admin: 03/04/19 10:33 Dose: 5,000 unit Piperacillin Sod/Tazobactam (Sod 3.375 gm/ Dextrose) 50 mls @ 100 mls/hr IVPB Q8H-IV [facility]; Protocol Last Admin: 03/04/19 10:32 Dose: 100 mls/hr Insulin Aspart (Novolog Vial Sliding Scale -) [address] [facility]; Protocol Last Admin: 03/04/19 11:42 Dose: 10 units Insulin Detemir (Levemir Vial) 25 units SQ [facility] Last Admin: 03/03/19 21:53 Dose: 25 units Losartan Potassium (Cozaar -) 100 mg PO DAILY [facility] Last Admin: 03/04/19 10:32 Dose: 100 mg Pantoprazole Sodium (Protonix -) 40 mg PO DAILY [facility] Last Admin: 03/04/19 10:32 Dose: 40 mg Rosuvastatin Calcium (Crestor -) 20 mg PO HS [facility] Last Admin: 03/03/19 21:50 Dose: 20 mg - Objective Vital Signs: Vital Signs Temperature 98.1 F 03/04/19 06:31 Pulse Rate 92 H 03/04/19 06:31 Respiratory Rate 18 03/04/19 06:31 Blood Pressure 130/72 03/04/19 06:31 O2 Sat by Pulse Oximetry (%) 97 03/03/19 21:00 Constitutional: Yes: No Distress, Calm Cardiovascular: Yes: Regular Rate and Rhythm Respiratory: Yes: Regular Gastrointestinal: Yes: Normal Bowel Sounds, Soft Genitourinary: Yes: WNL Musculoskeletal: Yes: WNL Extremities: Yes: Erythema (LLE less erythema/edema/tender) Wound/Incision: Yes: Other (dressing intact, Lt foot interdigital ulcer) Neurological: Yes: Alert, Oriented Labs: CBC, BMP 03/02/19 07:23 03/02/19 07:23 INR, PTT INR 0.97 (0.83-1.09) 03/02/19 07:23 Microbiology 03/01/19 17:10 Ulcer Gram Stain - Final 03/01/19 17:10 Ulcer Wound Culture - Final Klebsiella Oxytoca Corynebacterium Species 03/01/19 15:50 Blood - Peripheral Venous Blood Culture - Preliminary NO GROWTH OBTAINED AFTER 48 HOURS, INCUBATION TO CONTINUE FOR 3 DAYS. 03/01/19 15:30 Blood - Peripheral Venous Blood Culture - Preliminary NO GROWTH OBTAINED AFTER 48 HOURS, INCUBATION TO CONTINUE FOR 3 DAYS. - ....Imaging MRI: Pending Problem List - Problems (1) Cellulitis Code(s): L03.90 - CELLULITIS, UNSPECIFIED Qualifiers: Site of cellulitis: extremity Site of cellulitis of extremity: lower extremity Laterality: left Qualified Code(s): L03.116 - Cellulitis of left lower limb (2) Diabetic toe ulcer Code(s): E11.621 - TYPE 2 DIABETES MELLITUS WITH FOOT ULCER; L97.509 - NON- PRESSURE CHRONIC ULCER OTH PRT UNSP FOOT W UNSP SEVERITY Qualifiers: Diabetes mellitus type: type 2 Laterality: left Non-pressure ulcer stage : with fat layer exposed Qualified Code(s): E11.621 - Type 2 diabetes mellitus with foot ulcer; L97.522 - Non-pressure chronic ulcer of other part of left foot with fat layer exposed (3) Insulin dependent diabetes mellitus Code(s): E11.9 - TYPE 2 DIABETES MELLITUS WITHOUT COMPLICATIONS; Z79.4 - [facility] (CURRENT) USE OF INSULIN Assessment/Plan Infected Lt foot interdigital ulcer r/o OM -- wound debrided LLE cellulitis - improving DM with peripheral neuropathy HTN HLD Anemia -- wound culture results noted, if no OM found on MRI plan is to switch to po antibiotics -- f/u MRI results -- continue wound care Dr. Vásquez following
--- NOTE | 2019-03-04 16:20 | PN ---
Progress Note, Physician Chief Complaint: left foot pain History of Present Illness: no acute events overnight, feeling better - Current Medication List Current Medications: Active Medications Aspirin (Asa -) 81 mg PO DAILY [facility] Last Admin: 03/04/19 10:32 Dose: 81 mg Ferrous Sulfate (Feosol -) 325 mg PO BIDWM [facility] Last Admin: 03/04/19 10:32 Dose: 325 mg Gentamicin Sulfate (Garamycin 0.1% Ointment -) 1 applic TP BID [facility] Last Admin: 03/04/19 10:33 Dose: 1 applic Heparin Sodium (Porcine) (Heparin -) 5,000 unit SQ Q8H-IV [facility] Last Admin: 03/04/19 10:33 Dose: 5,000 unit Piperacillin Sod/Tazobactam (Sod 3.375 gm/ Dextrose) 50 mls @ 100 mls/hr IVPB Q8H-IV [facility]; Protocol Last Admin: 03/04/19 10:32 Dose: 100 mls/hr Insulin Aspart (Novolog Vial Sliding Scale -) 1 vial SQ [facility]; Protocol Last Admin: 03/04/19 11:42 Dose: 10 units Insulin Detemir (Levemir Vial) 25 units SQ [facility] Last Admin: 03/03/19 21:53 Dose: 25 units Losartan Potassium (Cozaar -) 100 mg PO DAILY [facility] Last Admin: 03/04/19 10:32 Dose: 100 mg Pantoprazole Sodium (Protonix -) 40 mg PO DAILY [facility] Last Admin: 03/04/19 10:32 Dose: 40 mg Rosuvastatin Calcium (Crestor -) 20 mg PO [facility] Last Admin: 03/03/19 21:50 Dose: 20 mg - Objective Vital Signs: Vital Signs Temperature 98.1 F 03/04/19 06:31 Pulse Rate 92 H 03/04/19 06:31 Respiratory Rate 18 03/04/19 06:31 Blood Pressure 130/72 03/04/19 06:31 O2 Sat by Pulse Oximetry (%) 97 03/03/19 21:00 Constitutional: Yes: Well Nourished, No Distress Cardiovascular: Yes: WNL, Regular Rate and Rhythm Respiratory: Yes: WNL, Regular, CTA Bilaterally Gastrointestinal: Yes: WNL, Normal Bowel Sounds, Soft, Abdomen, Obese Extremities: Yes: Other (left calf swelling, left foot wrapped, right foot no edema) Labs: CBC, BMP 06/21/19 07:23 03/02/19 07:23 INR, PTT INR 0.97 (0.83-1.09) 03/02/19 07:23 Problem List - Problems (1) Diabetic toe ulcer Code(s): E11.621 - TYPE 2 DIABETES MELLITUS WITH FOOT ULCER; L97.509 - NON- PRESSURE CHRONIC ULCER OTH PRT UNSP FOOT W UNSP SEVERITY Qualifiers: Diabetes mellitus type: type 2 Laterality: left Non-pressure ulcer stage : with fat layer exposed Qualified Code(s): E11.621 - Type 2 diabetes mellitus with foot ulcer; L97.522 - Non-pressure chronic ulcer of other part of left foot with fat layer exposed (2) Foot infection Code(s): L08.9 - LOCAL INFECTION OF THE SKIN AND SUBCUTANEOUS TISSUE, UNSP (3) Insulin dependent diabetes mellitus Code(s): E11.9 - TYPE 2 DIABETES MELLITUS WITHOUT COMPLICATIONS; Z79.4 - [facility] (CURRENT) USE OF INSULIN Assessment/Plan This is a 58 year old woman with a history of HTN, HLD, IDDM, PAD, left leg angioplasty who presented to the ED because of a left foot ulcer. 1. Left foot ulcer, infected and non healing -MRI done pending read, r/o osteo -c/w IV abx -wound cx klebseilla and cornye -CTA poor study, no vascular intervention at this time -vascular and ID following 2) PAD, with a hx of LLE angioplasty -on asa and statin 3) IDDM -needs better control -add bolus dosing tidac -increase levemir dose 4) HTN -controlled, c/w cozaar 5) HLD on statin 6) Microcytic Anemia on ferrous sulfate -fu outpatient 7) Obesity-counseling
[2019-03-04] MEDS: Insulin (LOG) Aspart 100 UNITS/ML VIAL SQ SCH (17:14)
[2019-03-04] MEDS ORDERED: INSULIN (NOVOLOG) ASPART 100 UNITS/ML 10ML VIAL ONE (21:24)
[2019-03-04] MEDS: INSULIN (LEVEMIR) 100 UNITS/ML UNITS SQ SCH (21:57)
[2019-03-04] MEDS: ROSUVASTATIN CA 20 MG TABLET (FP) PO SCH (21:58)
[2019-03-05] MEDS ORDERED: DEXTROSE 5%-WATER - 50 ML IVPB ONE ×3 (02:34→17:14)
[2019-03-05] MEDS ORDERED: PIPERACILLIN/TAZOBACTAM 3.375 GM VIAL IVPB ONE ×3 (02:34→17:13)
[2019-03-05] MEDS: PIPERACILLIN/TAZOB 3.375 GM 3.375 GM in DEXTROSE 5%-WATER - 50 ML IVPB SCH ×3 (02:44→17:16)
[2019-03-05] MEDS: HEPARIN NA (PORCINE) 5,000 UNITS/ML 1ML VIAL SQ SCH ×3 (02:52→17:16)
[2019-03-05] MEDS: Insulin (LOG) Aspart 100 UNITS/ML VIAL SQ SCH ×3 (06:27→17:17)
[2019-03-05] MEDS: INSULIN SLIDING SCALE (NOVOLOG) 1 VIAL SQ SCH ×4 (06:27→21:47)
[2019-03-05] MEDS: FERROUS SO4 325 MG TABLET (FP) PO SCH ×2 (07:57→17:16)
[2019-03-05] MEDS: PANTOPRAZOLE 40 MG TABLET (FP) PO SCH (09:10)
[2019-03-05] MEDS: ASPIRIN 81 MG CHEWABLE TABLETS PO SCH (09:11)
[2019-03-05] MEDS: LOSARTAN POTASSIUM 50 MG TABLET (FP) PO SCH (09:11)
[2019-03-05 10:32] LABS: BASO % 1.2 % (0-2.0); EOS % 5.3 % (0-4.5); HEMATOCRIT 32.1 % (32.4-45.2); HEMOGLOBIN 10.3 GM/dL (10.7-15.3); LYMPH % 28.2 % (8-40); MCH 24.8 pg (25.7-33.7); MCHC 31.9 g/dl (32.0-36.0); MEAN CELL VOLUME 77.6 fl (80-96); MEAN PLT VOLUME 7.9 fl (7.5-11.1); MONO % 6.7 % (3.8-10.2); NEUT % 58.6 % (42.8-82.8); PLATELET COUNT 280 K/MM3 (134-434); RBC 4.14 M/mm3 (3.60-5.2); WHITE BLOOD COUNT 7.2 K/mm3 (4.0-10.0)
[2019-03-05 11:08] LABS: CALCIUM 8.8 mg/dL (8.5-10.1); CREATININE 0.8 mg/dL (0.55-1.3); POTASSIUM 4.7 mmol/L (3.5-5.1)
[2019-03-05] MEDS: LACTOBACILLUS ACIDOPHILUS 1 TABLET PO SCH (12:23)
--- NOTE | 2019-03-05 13:14 | PN ---
Progress Note (short form) - Note Progress Note: 58yo female w/ h/o PAD, IDDM and non-healing LLE foot ulcer Currently resting comfortably without complaint. Patient had a CTA: poor quality - no major vascular disease above knees. LLE MRI 03/03/19 --> OM involving the proximal and middle phalanges of the 4th & 5th toes (left foot). Midfoot - Charcot Joint AVSS. Afebrile Wound cx --> Klebseilla & Corynebacterium LLE & foot erythema improving. Left 4th toe ulcer minimal exudate. A/P OM of left foot; 4th and 5th toes PICC and IV ABX x 6 weeks Cont Medical management No surgical intervention
--- NOTE | 2019-03-05 13:32 | PN ---
Physical Exam: SUBJECTIVE: Patient seen and examined at bedside. No acute events overnight. Pt feels well, has no pain in L foot. Denies f/c, cp, sob, abd pain. OBJECTIVE: Vital Signs Temperature 98.2 F 03/05/19 05:56 Pulse Rate 101 H 03/05/19 10:00 Respiratory Rate 20 03/05/19 10:00 Blood Pressure 142/76 03/05/19 10:00 O2 Sat by Pulse Oximetry (%) 97 03/04/19 21:00 GENERAL: The patient is awake, alert, and fully oriented, in no acute distress. HEENT: AT/NC. EOMI. EDUARDO. Moist mucus membranes. NECK: Trachea midline, full range of motion, supple. LUNGS: Breath sounds equal, clear to auscultation bilaterally, no wheezes, no crackles, no accessory muscle use. HEART: Regular rate and rhythm, S1, S2 without murmur, rub or gallop. ABDOMEN: Soft, nontender, nondistended, normoactive bowel sounds, no guarding, no rebound, no hepatosplenomegaly, no masses. EXTREMITIES: 2+ pulses, warm, well-perfused, no edema. Diffuse leg tenderness L> R, No peripheral edema. Intertriginous ulcer on 4th digit of left foot. No purulence or tenderness noted. Decreased sensation of left foot. NEUROLOGICAL: Cranial nerves II through XII grossly intact. Normal speech, gait not observed. CBCD WBC 7.2 K/mm3 (4.0-10.0) 03/05/19 09:40 RBC 4.14 M/mm3 (3.60-5.2) 03/05/19 09:40 Hgb 10.3 GM/dL (10.7-15.3) L 03/05/19 09:40 Hct 32.1 % (32.4-45.2) L 03/05/19 09:40 MCV 77.6 fl (80-96) L 03/05/19 09:40 MCHC 31.9 g/dl (32.0-36.0) L 03/05/19 09:40 RDW 17.0 % (11.6-15.6) H 03/05/19 09:40 Plt Count 280 K/MM3 (134-434) 03/05/19 09:40 MPV 7.9 fl (7.5-11.1) 03/05/19 09:40 CMP Sodium 133 mmol/L (136-145) L 03/05/19 09:40 Potassium 4.7 mmol/L (3.5-5.1) 03/05/19 09:40 Chloride 101 mmol/L (98-107) 03/05/19 09:40 Carbon Dioxide 28 mmol/L (21-32) 03/05/19 09:40 Anion Gap 4 MMOL/L (8-16) L 03/05/19 09:40 BUN 17.0 mg/dL (7-18) 03/05/19 09:40 Creatinine 0.8 mg/dL (0.55-1.3) 03/05/19 09:40 Calcium 8.8 mg/dL (8.5-10.1) 03/05/19 09:40 Total Bilirubin 0.2 mg/dL (0.2-1) 03/01/19 15:50 AST 43 U/L (15-37) H 03/01/19 15:50 ALT 56 U/L (13-61) 03/01/19 15:50 Alkaline Phosphatase 124 U/L (45-117) H 03/01/19 15:50 Total Protein 6.8 g/dl (6.4-8.2) 03/01/19 15:50 Albumin 3.3 g/dl (3.4-5.0) L 03/01/19 15:50 Active Medications Aspirin (Asa -) 81 mg PO DAILY [facility] Last Admin: 03/05/19 09:11 Dose: 81 mg Ferrous Sulfate (Feosol -) 325 mg PO BIDWM [facility] Last Admin: 03/05/19 07:57 Dose: 325 mg Gentamicin Sulfate (Garamycin 0.1% Ointment -) 1 applic TP BID [facility] Last Admin: 03/04/19 21:59 Dose: 1 applic Heparin Sodium (Porcine) (Heparin -) 5,000 unit SQ Q8H-IV [facility] Last Admin: 03/05/19 09:11 Dose: 5,000 unit Piperacillin Sod/Tazobactam (Sod 3.375 gm/ Dextrose) 50 mls @ 100 mls/hr IVPB Q8H-IV [facility]; Protocol Last Admin: 03/05/19 09:09 Dose: 100 mls/hr Insulin Aspart (Novolog Vial Sliding Scale -) 1 vial SQ ACHS [facility]; Protocol Last Admin: 03/05/19 11:47 Dose: 12 units Insulin Aspart (Novolog) 5 units SQ TIDAC [facility] Last Admin: 03/05/19 11:47 Dose: 5 units Insulin Detemir (Levemir Vial) 25 units SQ HS [facility] Last Admin: 03/04/19 21:57 Dose: 25 units Lactobacillus Acidophilus (Bacid -) 1 tab PO DAILY [facility] Last Admin: 03/05/19 12:23 Dose: 1 tab Losartan Potassium (Cozaar -) 100 mg PO DAILY [facility] Last Admin: 03/05/19 09:11 Dose: 100 mg Pantoprazole Sodium (Protonix -) 40 mg PO DAILY [facility] Last Admin: 03/05/19 09:10 Dose: 40 mg Rosuvastatin Calcium (Crestor -) 20 mg PO HS [facility] Last Admin: 03/04/19 21:58 Dose: 20 mg IMAGING: * LE xray: Very abnormal foot with Charcot joint problems and old trauma. * Aorta w/ CTA Runoff: Mild to moderate aortoiliac, femoropopliteal, and infrapopliteal atherosclerotic disease with stenosis 50-70% in the femoral and popliteal segments, slightly more prominent on the L with patent 2 vessel runoff via ISAIAS's and peroneal arteries and occluded [employer]PER[employer]'s. Flow into DPA and plantar arteries cannot be discerned on this exam. 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 s/p cholecystectomy. Mod. colonic stool burden. * Duplex LLE: Mild atherosclerotic dz in L common femoral through popliteal artery w/ at least mod. atherosclerotic dz in posterior tibial artery w/o evid of occlusion. * LE MRI: OM is seen involving the proximal and middle phalanges of the 4th and 5th left toes. Partially imaged L mid foot demonstrates findings suggestive of advanced Charcot joint. ASSESSMENT/PLAN: Pt. is a 58 y.o. F w/ PMHx. of HTN, HLD, NIDDM, and L. Foot gangrene requiring Femoral-Popliteal Bypass in 2012 presents to the ED after failed outpatient management of left foot diabetic foot ulcer found to have osteomyelitis. #PVD w/ Infected Diabetic L Foot Ulcer -followed by vascular surg (Dr. Vásquez); Per vasc recs, no surgical intervention needed; cont medical mgmt -Received Vanc/Zosyn in ED; will cont with Zosyn for now. F/u ID recs for further abx -WCx +Klebsiella oxytoca, +Corynebacterium species -Cont ASA, statin -MRI LLE noted above; +OM #IDDM w/ peripheral neuropathy -Hold Oral Medications -BGM/ISS ACHS -Will start long-acting insulin, Levemir 25U and titrate up as needed -Will need close outpatient follow up for better glycemic control #HTN; cont home meds: Losartan 100 QD #PVD; cont home meds: ASA 81mg #Microcytic Anemia/VAHE; H/H/MCV 10.3/32.1/77.6 -Cont Ferrous Sulfate 325 mg 2x/week -needs outpatient follow up #FEN -no IVF, encourage PO intake -monitor electrolytes and replete as needed -Na Restricted/Diabetic Diet #DVT Ppx; SQH Dispo -cont to monitor on med-surg -Will need PICC line and VNS services for home infusion of IV Abx Visit type - Emergency Visit Emergency Visit: Yes ED Registration Date: 03/01/19 Care time: The patient presented to the Emergency Department on the above date and was hospitalized for further evaluation of their emergent condition. - New Patient This patient is new to me today: No - Critical Care Critical Care patient: No
--- NOTE | 2019-03-05 13:45 | PN ---
Progress Note, Physician History of Present Illness: patient stable no new issues - Current Medication List Current Medications: Active Medications Aspirin (Asa -) 81 mg PO DAILY [facility] Last Admin: 03/05/19 09:11 Dose: 81 mg Ferrous Sulfate (Feosol -) 325 mg PO BIDWM [facility] Last Admin: 03/05/19 07:57 Dose: 325 mg Gentamicin Sulfate (Garamycin 0.1% Ointment -) 1 applic TP BID [facility] Last Admin: 03/04/19 21:59 Dose: 1 applic Heparin Sodium (Porcine) (Heparin -) 5,000 unit SQ Q8H-IV [facility] Last Admin: 03/05/19 09:11 Dose: 5,000 unit Piperacillin Sod/Tazobactam (Sod 3.375 gm/ Dextrose) 50 mls @ 100 mls/hr IVPB Q8H-IV [facility]; Protocol Last Admin: 03/05/19 09:09 Dose: 100 mls/hr Insulin Aspart (Novolog Vial Sliding Scale -) 1 vial SQ ACHS [facility]; Protocol Last Admin: 03/05/19 11:47 Dose: 12 units Insulin Aspart (Novolog) 5 units SQ TIDAC [facility] Last Admin: 03/05/19 11:47 Dose: 5 units Insulin Detemir (Levemir Vial) 25 units SQ HS [facility] Last Admin: 03/04/19 21:57 Dose: 25 units Lactobacillus Acidophilus (Bacid -) 1 tab PO DAILY [facility] Last Admin: 03/05/19 12:23 Dose: 1 tab Losartan Potassium (Cozaar -) 100 mg PO DAILY [facility] Last Admin: 03/05/19 09:11 Dose: 100 mg Pantoprazole Sodium (Protonix -) 40 mg PO DAILY [facility] Last Admin: 03/05/19 09:10 Dose: 40 mg Rosuvastatin Calcium (Crestor -) 20 mg PO HS [facility] Last Admin: 03/04/19 21:58 Dose: 20 mg - Objective Vital Signs: Vital Signs Temperature 98.2 F 03/05/19 05:56 Pulse Rate 101 H 03/05/19 10:00 Respiratory Rate 20 03/05/19 10:00 Blood Pressure 142/76 03/05/19 10:00 O2 Sat by Pulse Oximetry (%) 97 03/04/19 21:00 Constitutional: Yes: No Distress, Calm Cardiovascular: Yes: Regular Rate and Rhythm Respiratory: Yes: Regular, CTA Bilaterally Gastrointestinal: Yes: Normal Bowel Sounds, Soft Musculoskeletal: Yes: WNL Extremities: Yes: WNL Wound/Incision: Yes: Dressing Dry and Intact Neurological: Yes: Alert, Oriented Psychiatric: Yes: Alert, Oriented Labs: CBC, BMP 03/05/19 09:40 03/05/19 09:40 INR, PTT INR 0.97 (0.83-1.09) 03/02/19 07:23 Assessment/Plan Pt. is a 58 y.o. F w/ PMHx. of HTN, HLD, NIDDM, and L. Foot gangrene requiring Femoral-Popliteal Bypass in 2012 presents to the ED after failed outpatient management of left foot diabetic foot ulcer. #NIDDM Diabetic Foot Ulcer HTN PVD osteo plan will continue current mgmt wound care rest as per the team
--- NOTE | 2019-03-05 16:15 | PN ---
Teaching Attending Note Name of Resident: Judy Paz ATTENDING PHYSICIAN STATEMENT I saw and evaluated the patient. I reviewed the resident's note and discussed the case with the resident. I agree with the resident's findings and plan as documented. SUBJECTIVE:asymptomatic. states she has very little feeling in the L foot. denies Cp, SOB, fever, chills, n/V/c/d OBJECTIVE: Last Vital Signs Temp Pulse Resp BP Pulse Ox 98.2 F 82 20 135/67 97 03/05/19 15:54 03/05/19 15:54 03/05/19 15:54 03/05/19 15:54 03/04/19 21:00 General NAD Extremities L foot with ulcer in interdigit webbing of 4th and 5th digit, no active drainage. pulse intact. decreased sensation to palmar aspect of foot ASSESSMENT AND PLAN: 58 year old woman with a history of HTN, hyperlipidemia, type 2 DM, PAD, left leg angioplasty who presented to the ED because of a left foot ulcer. 1. L 4th and 5th digit OM- affecting the proximal and middle phalanges. s/p bedside debridement on 03/03. will need terminal supervisor IV abx. check baseline ESR/ CRP. Wcx growing delgadillo-sensitive klebisella. will get tunneled catheter. d/w SW need for home infusions. ID and Vascular surgery on board. Infected non- healing left foot ulcer 2. PAD, history of LLE angioplasty- Continue aspirin, Crestor. Vascular surgery follow up outpatient 3. Type 2 DM with neuropathy- not well controlled here however home meds are not available. can resume home meds on discharge. 4. HTN- Continue Cozaar 5. Hyperlipidemia- Continue Crestor 6. Anemia, microcytic. on iron supplements. hgb stable. outpatient monitoring 7. Obesity with BMI 39.2 8. DVT ppx- hep sq 9. medically optimized for discharge home iwht VNS and home infusions. awaiting on insurance auth for home therapy. anticipate discharge in next 24H
[2019-03-05] MEDS: GENTAMICIN SO4 0.1% TOPICAL OINTMENT 15 GM/TUBE TUBE TP SCH ×2 (18:07→21:50)
[2019-03-05] MEDS ORDERED: INSULIN (NOVOLOG) ASPART 100 UNITS/ML 10ML VIAL ONE (21:01)
[2019-03-05] MEDS: ROSUVASTATIN CA 20 MG TABLET (FP) PO SCH (21:47)
[2019-03-05] MEDS: INSULIN (LEVEMIR) 100 UNITS/ML UNITS SQ SCH (21:48)
[2019-03-06] MEDS ORDERED: PIPERACILLIN/TAZOBACTAM 3.375 GM VIAL IVPB ONE ×2 (01:03→09:57)
[2019-03-06] MEDS ORDERED: DEXTROSE 5%-WATER - 50 ML IVPB ONE ×2 (01:03→09:57)
[2019-03-06] MEDS: PIPERACILLIN/TAZOB 3.375 GM 3.375 GM in DEXTROSE 5%-WATER - 50 ML IVPB SCH ×2 (01:41→09:59)
[2019-03-06] MEDS: HEPARIN NA (PORCINE) 5,000 UNITS/ML 1ML VIAL SQ SCH ×3 (02:00→17:49)
[2019-03-06] MEDS: Insulin (LOG) Aspart 100 UNITS/ML VIAL SQ SCH ×3 (06:34→16:33)
[2019-03-06] MEDS: INSULIN SLIDING SCALE (NOVOLOG) 1 VIAL SQ SCH ×4 (06:36→22:42)
[2019-03-06] MEDS: FERROUS SO4 325 MG TABLET (FP) PO SCH ×2 (08:16→17:48)
[2019-03-06] MEDS: LOSARTAN POTASSIUM 50 MG TABLET (FP) PO SCH (09:58)
[2019-03-06] MEDS: PANTOPRAZOLE 40 MG TABLET (FP) PO SCH (09:58)
[2019-03-06] MEDS: ASPIRIN 81 MG CHEWABLE TABLETS PO SCH (09:58)
[2019-03-06] MEDS: LACTOBACILLUS ACIDOPHILUS 1 TABLET PO SCH (09:59)
[2019-03-06] MEDS ORDERED: INSULIN (NOVOLOG) ASPART 100 UNITS/ML 10ML VIAL ONE ×2 (11:44→16:37)
[2019-03-06] MEDS ORDERED: amLODIPine BESYLATE 5 MG TABLET (FP) PO ONE (11:46)
--- NOTE | 2019-03-06 12:37 | PN ---
Progress Note, Physician History of Present Illness: patient stable no new issues - Current Medication List Current Medications: Active Medications Aspirin (Asa -) 81 mg PO DAILY [facility] Last Admin: 03/06/19 09:58 Dose: 81 mg Ferrous Sulfate (Feosol -) 325 mg PO BIDWM [facility] Last Admin: 03/06/19 08:16 Dose: 325 mg Gentamicin Sulfate (Garamycin 0.1% Ointment -) 1 applic TP BID [facility] Last Admin: 03/05/19 21:50 Dose: 1 applic Heparin Sodium (Porcine) (Heparin -) 5,000 unit SQ Q8H-IV [facility] Last Admin: 03/06/19 09:59 Dose: 5,000 unit Piperacillin Sod/Tazobactam (Sod 3.375 gm/ Dextrose) 50 mls @ 100 mls/hr IVPB Q8H-IV [facility]; Protocol Last Admin: 03/06/19 09:59 Dose: 100 mls/hr Insulin Aspart (Novolog Vial Sliding Scale -) 1 vial SQ ACHS [facility]; Protocol Last Admin: 03/06/19 11:45 Dose: 10 units Insulin Aspart (Novolog) 5 units SQ TIDAC [facility] Last Admin: 03/06/19 11:46 Dose: 5 units Insulin Detemir (Levemir Vial) 25 units SQ HS [facility] Last Admin: 03/05/19 21:48 Dose: 25 units Lactobacillus Acidophilus (Bacid -) 1 tab PO DAILY [facility] Last Admin: 03/06/19 09:59 Dose: 1 tab Losartan Potassium (Cozaar -) 100 mg PO DAILY [facility] Last Admin: 03/06/19 09:58 Dose: 100 mg Pantoprazole Sodium (Protonix -) 40 mg PO DAILY [facility] Last Admin: 03/06/19 09:58 Dose: 40 mg Rosuvastatin Calcium (Crestor -) 20 mg PO HS [facility] Last Admin: 03/05/19 21:47 Dose: 20 mg - Objective Vital Signs: Vital Signs Temperature 98.1 F 03/06/19 09:12 Pulse Rate 101 H 03/06/19 09:12 Respiratory Rate 20 03/06/19 09:12 Blood Pressure 141/87 03/06/19 09:12 O2 Sat by Pulse Oximetry (%) 98 03/05/19 21:00 Constitutional: Yes: No Distress, Calm Cardiovascular: Yes: Regular Rate and Rhythm Respiratory: Yes: Regular, CTA Bilaterally Gastrointestinal: Yes: Normal Bowel Sounds, Soft Musculoskeletal: Yes: WNL Extremities: Yes: Other Wound/Incision: Yes: Dressing Dry and Intact Neurological: Yes: Alert, Oriented Psychiatric: Yes: Alert, Oriented Labs: CBC, BMP 03/05/19 09:40 03/05/19 09:40 INR, PTT INR 0.97 (0.83-1.09) 03/02/19 07:23 Assessment/Plan Pt. is a 58 y.o. F w/ PMHx. of HTN, HLD, NIDDM, and L. Foot gangrene requiring Femoral-Popliteal Bypass in 2012 presents to the ED after failed outpatient management of left foot diabetic foot ulcer. #NIDDM Diabetic Foot Ulcer HTN PVD osteo plan wound cx noted wound care ceftriaxone 2 gm daily for another 5 weeks rest as per the team
--- NOTE | 2019-03-06 13:07 | PN ---
Teaching Attending Note Name of Resident: Judy Paz ATTENDING PHYSICIAN STATEMENT I saw and evaluated the patient. I reviewed the resident's note and discussed the case with the resident. I agree with the resident's findings and plan as documented. SUBJECTIVE:asymptomatic. denies CP, SOB, fever, chills, N/V/C/D or foot pain OBJECTIVE: Last Vital Signs Temp Pulse Resp BP Pulse Ox 98.1 F 101 H 20 141/87 98 03/06/19 09:12 03/06/19 09:12 03/06/19 09:12 03/06/19 09:12 03/05/19 21:00 General NAD ASSESSMENT AND PLAN: 58 year old woman with a history of HTN, hyperlipidemia, type 2 DM, PAD, left leg angioplasty who presented to the ED because of a left foot ulcer. 1. L 4th and 5th digit OM- affecting the proximal and middle phalanges. s/p bedside debridement on 03/03. will need ceftriaxone x5 more weeks. ESR/CRP elevated. Wcx growing delgadillo-sensitive klebisella. will get tunneled catheter. d/w SW need for home infusions. ID and Vascular surgery on board. will need f/u with them as outpatient 2. PAD, history of LLE angioplasty- Continue aspirin, Crestor. Vascular surgery follow up outpatient 3. Type 2 DM with neuropathy- not well controlled here however home meds are not available. can resume home meds on discharge. 4. HTN- above goal. will start norvasc 5mg. informed to monitor BP at home (has cuff) and bring log of readings to PMD for further adjustment 5. Hyperlipidemia- Continue Crestor 6. Anemia, microcytic. on iron supplements. hgb stable. outpatient monitoring 7. Obesity with BMI 39.2 8. DVT ppx- hep sq 9. 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
[2019-03-06] MEDS ORDERED: DEXTROSE 5%-WATER 100 ML IVPB ONE (14:51)
[2019-03-06] MEDS: CEFTRIAXONE 2 GM in DEXTROSE 5%-WATER 100 ML IVPB SCH (14:53)
--- NOTE | 2019-03-06 15:45 | PN ---
Physical Exam: SUBJECTIVE: Patient seen and examined at bedside. No acute events overnight. Pt denies f/c, n/v, sob, cp, abd pain, urinary/bowel symptoms. OBJECTIVE: Vital Signs Temperature 98.1 F 03/06/19 09:12 Pulse Rate 101 H 03/06/19 09:12 Respiratory Rate 20 03/06/19 09:12 Blood Pressure 141/87 03/06/19 09:12 O2 Sat by Pulse Oximetry (%) 98 03/05/19 21:00 GENERAL: The patient is awake, alert, and fully oriented, in no acute distress. HEENT: AT/NC. EOMI. EDUARDO. Moist mucus membranes. NECK: Trachea midline, full range of motion, supple. LUNGS: Breath sounds equal, clear to auscultation bilaterally, no wheezes, no crackles, no accessory muscle use. HEART: Regular rate and rhythm, S1, S2 without murmur, rub or gallop. ABDOMEN: Soft, nontender, nondistended, normoactive bowel sounds, no guarding, no rebound, no hepatosplenomegaly, no masses. EXTREMITIES: 2+ pulses, warm, well-perfused, no edema. Diffuse leg tenderness L> R, No peripheral edema. Intertriginous ulcer on 4th digit of left foot. No purulence or tenderness noted. Decreased sensation of left foot. NEUROLOGICAL: Cranial nerves II through XII grossly intact. Normal speech, gait not observed. Laboratory Results - last 24 hr 03/05/19 03/05/19 03/05/19 17:06 17:06 21:43 ESR POC Glucometer 355 355 362 C-Reactive Protein 03/06/19 03/06/19 03/06/19 05:44 07:24 07:24 ESR 73 H POC Glucometer 357 C-Reactive Protein 1.1 H 03/06/19 11:42 ESR POC Glucometer 371 C-Reactive Protein Active Medications Aspirin (Asa -) 81 mg PO DAILY [facility] Last Admin: 03/06/19 09:58 Dose: 81 mg Ferrous Sulfate (Feosol -) 325 mg PO BIDWM [facility] Last Admin: 03/06/19 08:16 Dose: 325 mg Gentamicin Sulfate (Garamycin 0.1% Ointment -) 1 applic TP BID [facility] Last Admin: 03/05/19 21:50 Dose: 1 applic Heparin Sodium (Porcine) (Heparin -) 5,000 unit SQ Q8H-IV [facility] Last Admin: 03/06/19 09:59 Dose: 5,000 unit Ceftriaxone Sodium 2 gm/ (Dextrose) 100 mls @ 200 mls/hr IVPB DAILY [facility]; Protocol Last Admin: 03/06/19 14:53 Dose: 200 mls/hr Insulin Aspart (Novolog Vial Sliding Scale -) 1 vial SQ ACHS [facility]; Protocol Last Admin: 03/06/19 11:45 Dose: 10 units Insulin Aspart (Novolog) 5 units SQ TIDAC [facility] Last Admin: 03/06/19 11:46 Dose: 5 units Insulin Detemir (Levemir Vial) 25 units SQ HS [facility] Last Admin: 03/05/19 21:48 Dose: 25 units Lactobacillus Acidophilus (Bacid -) 1 tab PO DAILY [facility] Last Admin: 03/06/19 09:59 Dose: 1 tab Losartan Potassium (Cozaar -) 100 mg PO DAILY [facility] Last Admin: 03/06/19 09:58 Dose: 100 mg Pantoprazole Sodium (Protonix -) 40 mg PO DAILY [facility] Last Admin: 03/06/19 09:58 Dose: 40 mg Rosuvastatin Calcium (Crestor -) 20 mg PO HS [facility] Last Admin: 03/05/19 21:47 Dose: 20 mg IMAGING: * LE xray: Very abnormal foot with Charcot joint problems and old trauma. * Aorta w/ CTA Runoff: Mild to moderate aortoiliac, femoropopliteal, and infrapopliteal atherosclerotic disease with stenosis 50-70% in the femoral and popliteal segments, slightly more prominent on the L with patent 2 vessel runoff via ISAIAS's and peroneal arteries and occluded FINANCIAL ASSISTANCE SPECIALIST's. Flow into DPA and plantar arteries cannot be discerned on this exam. 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 s/p cholecystectomy. Mod. colonic stool burden. * Duplex LLE: Mild atherosclerotic dz in L common femoral through popliteal artery w/ at least mod. atherosclerotic dz in posterior tibial artery w/o evid of occlusion. * LE MRI: OM is seen involving the proximal and middle phalanges of the 4th and 5th left toes. Partially imaged L mid foot demonstrates findings suggestive of advanced Charcot joint. ASSESSMENT/PLAN: Pt. is a 58 y.o. F w/ PMHx. of HTN, HLD, NIDDM, and L. Foot gangrene requiring Femoral-Popliteal Bypass in 2012 presents to the ED after failed outpatient management of left foot diabetic foot ulcer found to have osteomyelitis. #PVD w/ Infected Diabetic L Foot Ulcer; MRI LLE noted above; +OM -followed by vascular surg (Dr. Vásquez); Per vasc recs, no surgical intervention needed; cont medical mgmt -Per ID, will cont with IV Ceftriaxone 2gm daily -WCx +Klebsiella oxytoca, +Corynebacterium species -Cont ASA, statin #IDDM w/ peripheral neuropathy -Hold Oral Medications -BGM/ISS ACHS -Will increase Levemir to 35U -Will need close outpatient follow up for better glycemic control #HTN; cont home meds: Losartan 100 QD #PVD; cont home meds: ASA 81mg #Microcytic Anemia/VAHE; H/H/MCV 10.3/32.1/77.6 -Cont Ferrous Sulfate 325 mg 2x/week -needs outpatient follow up #FEN -no IVF, encourage PO intake -monitor electrolytes and replete as needed -Na Restricted/Diabetic Diet #DVT Ppx; SQH Dispo -cont to monitor on med-surg -Awaiting insurance approval for IV home infusion. If not approved, will recommend daily outpatient visit to hospital for continuation of treatment Visit type - Emergency Visit Emergency Visit: Yes ED Registration Date: 03/01/19 Care time: The patient presented to the Emergency Department on the above date and was hospitalized for further evaluation of their emergent condition. - New Patient This patient is new to me today: No - Critical Care Critical Care patient: No
[2019-03-06] MEDS ORDERED: INSULIN (LEVEMIR) 100 UNITS/ML UNITS SQ SCH (15:53)
[2019-03-06] MEDS: GENTAMICIN SO4 0.1% TOPICAL OINTMENT 15 GM/TUBE TUBE TP SCH ×2 (17:49→22:34)
--- NOTE | 2019-03-06 18:53 | PN ---
Progress Note (short form) - Note Progress Note: Awaiting PICC for home abx Continue Santyl daily. Follow-up in Wound Care in 2 weeks. Problem List - Problems (1) Diabetic toe ulcer Code(s): E11.621 - TYPE 2 DIABETES MELLITUS WITH FOOT ULCER; L97.509 - NON- PRESSURE CHRONIC ULCER OTH PRT UNSP FOOT W UNSP SEVERITY Qualifiers: Diabetes mellitus type: type 2 Laterality: left Non-pressure ulcer stage : with fat layer exposed Qualified Code(s): E11.621 - Type 2 diabetes mellitus with foot ulcer; L97.522 - Non-pressure chronic ulcer of other part of left foot with fat layer exposed
[2019-03-06] MEDS: ROSUVASTATIN CA 20 MG TABLET (FP) PO SCH (22:34)
[2019-03-06 23:38] LABS: BLOOD UREA NITROGEN 17.5 mg/dL (7-18); CALCIUM 8.7 mg/dL (8.5-10.1); CREATININE 0.9 mg/dL (0.55-1.3); POTASSIUM 4.5 mmol/L (3.5-5.1)
[2019-03-06] MEDS ORDERED: INSULIN (NOVOLOG) ASPART 100 UNITS/ML 10ML VIAL SQ ONE (23:43)
[2019-03-07 00:15] VITALS: TEMP 98.5
[2019-03-07] MEDS: HEPARIN NA (PORCINE) 5,000 UNITS/ML 1ML VIAL SQ SCH ×2 (01:57→11:33)
[2019-03-07] MEDS: Insulin (LOG) Aspart 100 UNITS/ML VIAL SQ SCH ×2 (06:13→11:42)
[2019-03-07] MEDS: INSULIN SLIDING SCALE (NOVOLOG) 1 VIAL SQ SCH ×2 (06:14→11:42)
[2019-03-07] MEDS ORDERED: DEXTROSE 5%-WATER 100 ML IVPB ONE (07:52)
[2019-03-07] MEDS: FERROUS SO4 325 MG TABLET (FP) PO SCH (07:56)
[2019-03-07] MEDS: CEFTRIAXONE 2 GM in DEXTROSE 5%-WATER 100 ML IVPB SCH (09:07)
[2019-03-07] MEDS ORDERED: amLODIPine BESYLATE 5 MG TABLET (FP) PO SCH (10:00)
--- NOTE | 2019-03-07 10:55 | DS ---
Physical Exam: SUBJECTIVE: Patient seen and examined at bedside. No acute events overnight. OBJECTIVE: Vital Signs Period Temp Pulse Resp BP Sys/Harrison Pulse Ox Last 24 Hr 98.5 F-98.9 F 88-99 20-20 114-160/71-83 PHYSICAL EXAM GENERAL: The patient is awake, alert, and fully oriented, in no acute distress. HEENT: AT/NC. EOMI. EDUARDO. Moist mucus membranes. NECK: Trachea midline, full range of motion, supple. LUNGS: Breath sounds equal, clear to auscultation bilaterally, no wheezes, no crackles, no accessory muscle use. HEART: Regular rate and rhythm, S1, S2 without murmur, rub or gallop. ABDOMEN: Soft, nontender, nondistended, normoactive bowel sounds, no guarding, no rebound, no hepatosplenomegaly, no masses. EXTREMITIES: 2+ pulses, warm, well-perfused, no edema. Intertriginous ulcer on 4th digit of left foot. No purulence or tenderness noted. Decreased sensation of left foot. NEUROLOGICAL: Cranial nerves II through XII grossly intact. Normal speech, gait not observed. LABS Laboratory Results - last 24 hr 03/06/19 03/06/19 03/06/19 11:42 16:17 22:32 Sodium Potassium Chloride Carbon Dioxide Anion Gap BUN Creatinine Est GFR (CKD-EPI)AfAm Est GFR (CKD-EPI)NonAf POC Glucometer 371 416 402 Random Glucose Calcium 03/06/19 03/07/19 03/07/19 22:50 05:32 06:10 Sodium 130 L Potassium 4.5 Chloride 99 Carbon Dioxide 25 Anion Gap 6 L BUN 17.5 Creatinine 0.9 Est GFR (CKD-EPI)AfAm 81.11 Est GFR (CKD-EPI)NonAf 69.99 POC Glucometer 418 Random Glucose 418 H* 430 H* Calcium 8.7 HOSPITAL COURSE: Date of Admission:03/01/19 IMAGING: * LE xray: Very abnormal foot with Charcot joint problems and old trauma. * Aorta w/ CTA Runoff: Mild to moderate aortoiliac, femoropopliteal, and infrapopliteal atherosclerotic disease with stenosis 50-70% in the femoral and popliteal segments, slightly more prominent on the L with patent 2 vessel runoff via ISAIAS's and peroneal arteries and occluded CLAIMS SERVICE REPRESENTATIVE's. Flow into DPA and plantar arteries cannot be discerned on this exam. 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 s/p cholecystectomy. Mod. colonic stool burden. * Duplex LLE: Mild atherosclerotic dz in L common femoral through popliteal artery w/ at least mod. atherosclerotic dz in posterior tibial artery w/o evid of occlusion. * LE MRI: OM is seen involving the proximal and middle phalanges of the 4th and 5th left toes. Partially imaged L mid foot demonstrates findings suggestive of advanced Charcot joint. Pt is a 58 y.o. F w/ PMHx. of HTN, HLD, IDDM, and L Foot gangrene requiring Femoral-Popliteal Bypass in 2012 presents to the ED after failed outpatient management of left foot diabetic foot ulcer found to have osteomyelitis. Upon arrival, pt had a LLE xray that showed Charcot joint problems. She was empirically started on Vanc/Zosyn for broad spectrum coverage. She underwent bedside I&D by vascular surg and found to have wound cultures positive for Klebsiella Oxytoca and Corynebacerium species. A LLE MRI was done that showed osteomyelitis. Upon ID eval, IV abx were switched to Ceftriaxone. CTA aorta runoff was ordered to assess vasculature in L leg. Results showed mild to moderate aortoiliac, femoropopliteal, and infrapopliteal atherosclerotic disease with stenosis 50-70% in the femoral and popliteal segments, slightly more prominent on the L with patent 2 vessel runoff via ISAIAS's and peroneal arteries and occluded CLAIMS SERVICE REPRESENTATIVE's. Per vasc surg, no emergent intervention was needed during admission for these findings. Her hospital stay was complicated by elevated blood pressure readings after which she was started on Amlodipine. BP readings stabilized. Throughout hospital stay, pt's symptoms of improved. She was discharged home with a PICC line to continue IV home infusion of Ceftriaxone , Amlodipine, and Bacid. She was also advised to follow up with her PCP and vascular surgeon as an outpatient for routine evaluation. She was also given daily foot wound care instructions. Date of Discharge: 03/07/19 Minutes to complete discharge: 35 Discharge Summary Reason For Visit: CELLULITIS Current Active Problems Cellulitis (Acute) Diabetic toe ulcer (Acute) Foot infection (Acute) Insulin dependent diabetes mellitus (Chronic) Condition: Good - Instructions Diet, Activity, Other Instructions: You were seen in the hospital for complaints of a left food wound ulcer. MRI findings showed evidence of osteomyelitis (infection of your bone). During your hospital admission, you were seen by the vascular surgeon with no need for emergent surgical intervention. Additionally, you were seen by the infectious disease doctor and given IV antibiotics. Your wound was washed and cleaned during your stay. You are being discharged home with instructions to continue IV antibiotics. MEDICATIONS We have made the following changes to your medications: Please START taking IV Ceftriaxone 2 gm once a day for 6 weeks. Your last day of IV antibiotics will be on April 12, 2019. Please START taking Amlodipine 5 mg once a day by mouth for blood pressure. You will need to check your blood pressure daily and follow up with your PCP. Please START taking Bacid 1 tab once a day by mouth. You may continue taking the rest of your home medications as prescribed. RECOMMENDATIONS Please apply Santyl to your foot wound. Keep the area clean and covered with gauze. You will need to follow up at the wound care in 2 weeks. Please see attached sheet for foot wound care. FOLLOW UP Please follow up with your primary care physician within 1 week. Please follow up with your vascular surgeon, Dr. Vásquez for outpatient evaluation and routine wound care in 2 weeks. Please follow up with your infectious disease doctor, Dr. Silveira within 1 week. If you experience worsening fever, chills, nausea/vomiting, chest pain, shortness of breath, or other associated symptoms, please proceed to your nearest emergency room immediately. Referrals: Sintia Silveira MD [Staff Physician] - 1 Week Krystin Riggins [Non Staff, Medical] - 1 Week Kai Vásquez MD [Staff Physician] - 2 Weeks Disposition: HOME - Home Medications Comprehensive Discharge Medication List: Ambulatory Orders Dapagliflozin Propanediol [Farxiga] 10 mg PO DAILY 05/11/18 Insulin Aspart [Novolog] 35 - 60 units SQ TID 05/11/18 Insulin Degludec [Tresiba Flextouch U-100] 160 unit SQ DAILY 05/11/18 Losartan Potassium 100 mg PO DAILY 05/11/18 Metformin HCl [Glucophage] 1,000 mg PO BID 05/11/18 Omeprazole 40 mg PO DAILY 05/11/18 Cholecalciferol (Vitamin D3) [Vitamin D3] 5,000 unit PO DAILY 03/01/19 Aspirin [Raji Chewable Aspirin] 81 mg PO DAILY 03/02/19 Rosuvastatin [Crestor -] 20 mg PO DAILY 03/02/19 Amlodipine Besylate [Norvasc -] 5 mg PO DAILY #30 tablet 03/07/19 Lactobacillus Acidophilus [Bacid -] 1 tab PO DAILY #30 tab 03/07/19 This patient is new to me today: No Emergency Visit: Yes ED Registration Date: 03/01/19 Care time: The patient presented to the Emergency Department on the above date and was hospitalized for further evaluation of their emergent condition. Critical Care patient: No - Discharge Referral Referred to [facility] Med P.C.: No
--- NOTE | 2019-03-07 11:26 | PN ---
Teaching Attending Note Name of Resident: Judy Paz ATTENDING PHYSICIAN STATEMENT I saw and evaluated the patient. I reviewed the resident's note and discussed the case with the resident. I agree with the resident's findings and plan as documented. SUBJECTIVE:asymptoamtic. denies CP, SOB, fever, chills, N/V/C/D OBJECTIVE: Last Vital Signs Temp Pulse Resp BP Pulse Ox 98.5 F 99 H 20 160/71 98 03/07/19 05:52 03/07/19 10:00 03/07/19 10:00 03/07/19 10:00 03/05/19 21:00 General NAD ASSESSMENT AND PLAN: 58 year old woman with a history of HTN, hyperlipidemia, type 2 DM, PAD, left leg angioplasty who presented to the ED because of a left foot ulcer. 1. L 4th and 5th digit OM- affecting the proximal and middle phalanges. s/p bedside debridement on 03/03. will need ceftriaxone x5 more weeks. ESR/CRP elevated. Wcx growing delgadillo-sensitive klebisella. will get tunneled catheter. d/w SW need for home infusions. ID and Vascular surgery on board. will need f/u with them as outpatient 2. PAD, history of LLE angioplasty- Continue aspirin, Crestor. Vascular surgery follow up outpatient 3. Type 2 DM with neuropathy- not well controlled here however home meds are not available. can resume home meds on discharge. 4. HTN- above goal. started on norvasc 5mg with good response. informed to monitor BP at home (has cuff) and bring log of readings to PMD for further adjustment 5. Hyperlipidemia- Continue Crestor 6. Anemia, microcytic. on iron supplements. hgb stable. outpatient monitoring 7. Obesity with BMI 39.2 8. DVT ppx- hep sq 9. awaiting insurance auth for PICC line and home infusions. will d/c once obtained
[2019-03-07] MEDS: PANTOPRAZOLE 40 MG TABLET (FP) PO SCH (11:31)
[2019-03-07] MEDS: LOSARTAN POTASSIUM 50 MG TABLET (FP) PO SCH (11:31)
[2019-03-07] MEDS: ASPIRIN 81 MG CHEWABLE TABLETS PO SCH (11:31)
[2019-03-07] MEDS: LACTOBACILLUS ACIDOPHILUS 1 TABLET PO SCH (11:31)
[2019-03-07] MEDS ORDERED: INSULIN (NOVOLOG) ASPART 100 UNITS/ML 10ML VIAL ONE (11:39)
[2019-03-07 11:41] VITALS: BP 184/78; PULSE 98
--- NOTE | 2019-03-07 12:58 | PN ---
Progress Note, Physician History of Present Illness: patient stable no new issues - Current Medication List Current Medications: Active Medications Amlodipine Besylate (Norvasc -) 5 mg PO DAILY [facility] Last Admin: 03/07/19 11:31 Dose: 5 mg Aspirin (Asa -) 81 mg PO DAILY [facility] Last Admin: 03/07/19 11:31 Dose: 81 mg Ferrous Sulfate (Feosol -) 325 mg PO BIDWM [facility] Last Admin: 03/07/19 07:56 Dose: 325 mg Gentamicin Sulfate (Garamycin 0.1% Ointment -) 1 applic TP BID [facility] Last Admin: 03/06/19 22:34 Dose: 1 applic Heparin Sodium (Porcine) (Heparin -) 5,000 unit SQ Q8H-IV [facility] Last Admin: 03/07/19 11:33 Dose: 5,000 unit Ceftriaxone Sodium 2 gm/ (Dextrose) 100 mls @ 200 mls/hr IVPB DAILY [facility]; Protocol Last Admin: 03/07/19 09:07 Dose: 200 mls/hr Insulin Aspart (Novolog Vial Sliding Scale -) 1 vial SQ ACHS [facility]; Protocol Last Admin: 03/07/19 11:42 Dose: 12 units Insulin Aspart (Novolog) 5 units SQ TIDAC [facility] Last Admin: 03/07/19 11:42 Dose: 5 units Insulin Detemir (Levemir Vial) 35 units SQ HS [facility] Last Admin: 03/06/19 22:34 Dose: 35 units Lactobacillus Acidophilus (Bacid -) 1 tab PO DAILY [facility] Last Admin: 03/07/19 11:31 Dose: 1 tab Losartan Potassium (Cozaar -) 100 mg PO DAILY [facility] Last Admin: 03/07/19 11:31 Dose: 100 mg Pantoprazole Sodium (Protonix -) 40 mg PO DAILY [facility] Last Admin: 03/07/19 11:31 Dose: 40 mg Rosuvastatin Calcium (Crestor -) 20 mg PO HS [facility] Last Admin: 03/06/19 22:34 Dose: 20 mg - Objective Vital Signs: Vital Signs Temperature 98.5 F 03/07/19 05:52 Pulse Rate 98 H 03/07/19 11:25 Respiratory Rate 20 03/07/19 11:25 Blood Pressure 184/78 H 03/07/19 11:25 O2 Sat by Pulse Oximetry (%) 98 03/05/19 21:00 Constitutional: Yes: No Distress, Calm Cardiovascular: Yes: Regular Rate and Rhythm Respiratory: Yes: Regular, CTA Bilaterally Gastrointestinal: Yes: Normal Bowel Sounds, Soft Musculoskeletal: Yes: WNL Extremities: Yes: WNL Wound/Incision: Yes: Dressing Dry and Intact Neurological: Yes: Alert, Oriented Psychiatric: Yes: Alert, Oriented Labs: CBC, BMP 03/05/19 09:40 03/07/19 12:01 INR, PTT INR 0.97 (0.83-1.09) 03/02/19 07:23 Assessment/Plan Pt. is a 58 y.o. F w/ PMHx. of HTN, HLD, NIDDM, and L. Foot gangrene requiring Femoral-Popliteal Bypass in 2012 presents to the ED after failed outpatient management of left foot diabetic foot ulcer. #NIDDM Diabetic Foot Ulcer HTN PVD osteo plan wound cx noted wound care ceftriaxone 2 gm daily for another 5 weeks rest as per the team
== END 2019-03-07 14:00 | disposition home or self-care (01) | DRG 638 ==
LOC: JER 13:57 → JERBED 19:12 → J6S 23:13
PROVIDERS: ADMIT Internal Medicine; ATTEND Internal Medicine
PROC: 0HDNXZZ Extraction of Left Foot Skin, External Approach (ICD-10-PCS; principal; 2019-03-03)
PROC: 02HV33Z Insertion of Infusion Device into Superior Vena Cava, Percutaneous Approach (ICD-10-PCS; 2019-03-07)
PROC: B548ZZA Ultrasonography of Superior Vena Cava, Guidance (ICD-10-PCS; 2019-03-07)
DX: E11.621 Type 2 diabetes mellitus with foot ulcer (principal); L03.116 Cellulitis of left lower limb; M86.8X7 Other osteomyelitis, ankle and foot; E11.69 Type 2 diabetes mellitus with other specified complication; L97.529 Non-pressure chronic ulcer of other part of left foot with unspecified severity; E11.42 Type 2 diabetes mellitus with diabetic polyneuropathy; E11.51 Type 2 diabetes mellitus with diabetic peripheral angiopathy without gangrene; D50.9 Iron deficiency anemia, unspecified; I10 Essential (primary) hypertension; E66.9 Obesity, unspecified; Z79.4 Long term (current) use of insulin; Z68.39 Body mass index [BMI] 39.0-39.9, adult; E78.5 Hyperlipidemia, unspecified
CPT/HCPCS: 36415; 36569; 71046-TC-FY; 73630-TC-LT; 73719-LT; 75635-TC; 77001-TC-FY; 80048; 80053; 82009; 82728; 82947; 82962; 83540; 83550; 83735; 84100; 85025; 85610; 85651; 86140; 86850; 86900; 86901; 87040; 87070; 87186; 87205; 93005; 93010; 93926-TC; 93971-TC; 97116-GP; 97161-GP; 99285-25; C1751; J0131; J1644